=== PATIENT | female | born 1950 | race Caucasian/White ===

== ENCOUNTER 2024-03-31 08:43 | Inpatient (IN) ==
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
[~2024-03-31 08:43] MED LIST: DEXAMETHASONE SOD INJ 4 MG/ML VIAL ONE; LIDOCAINE 2% 2 ML VIAL/AMP(20MG/ML) INFIL ONE; MIDAZOLAM HCL 1 MG/ML 2ML VIAL ONE; ONDANSETRON INJ 2 MG/ML 2 ML VIAL ONE; PROPOFOL IV EMULSION 10 MG/ML 20 ML VIAL IV ONE; ROCURONIUM BROMIDE 10 MG/ML 5 ML VIAL IV ONE; SUGAMMADEX SODIUM 200 MG/2 ML VIAL IV ONE; fentaNYL citrate PF 100 MCG/2 ML VIAL ONE
[2024-03-31] MEDS: LR 15ML/HR IV SCH (09:20)
[2024-03-31] MEDS ORDERED: FLUMAZENIL 0.1 MG/1 ML 10 ML VIAL IV PRN (09:31)
[2024-03-31] MEDS ORDERED: ePHEDrine sulfate 50 MG/ML AMP IV PRN (09:31)
[2024-03-31] MEDS ORDERED: PROMETHAZINE HCL 6.25 MG in SODIUM CHLORIDE 0.9% 50 ML IV PRN (09:31)
[2024-03-31] MEDS ORDERED: NALOXONE HCL 0.4 MG/1 ML VIAL/CARP IV PRN (09:31)
[2024-03-31] MEDS ORDERED: fentaNYL citrate PF 100 MCG/2 ML VIAL IV PRN (09:31)
[2024-03-31] MEDS ORDERED: ONDANSETRON INJ 2 MG/ML 2 ML VIAL IV PRN (09:31)
[2024-03-31] MEDS ORDERED: LABETALOL HCL IV 5 MG/ML 20ML IV PRN (09:31)
[2024-03-31] MEDS ORDERED: ATROPINE SULFATE 0.1 MG/ML 10ML SYR IV PRN (09:31)
--- NOTE | 2024-03-31 10:13 | History & Physical Bridge Note ---
Date of Service March 31, 2024 History & Physical Bridge Note I have examined the patient, reviewed the History & Physical and in the interval since the performance of the History & Physical I have noted the following changes of clinical significance: no changes noted 73-year-old female coming to the hospital for pulmonary mass She is here for navigational robotic bronchoscopy with EBUS Risk and benefit of the procedure explained the patient in depth She understands and agrees to go to the procedure. PT/INR/PTT, platelets within normal limit Please note the above document was generated using voice recognition software. It may contain grammatical, syntax or spelling errors.Any formal questions or concerns about the content, text or information contained within the body of this dictation should be directly addressed to the provider for clarification.
[2024-03-31] MEDS ORDERED: ROCURONIUM BROMIDE 10 MG/ML 5 ML VIAL IV ONE (11:04)
[2024-03-31] MEDS ORDERED: ETOMIDATE 2 MG/ML 20 ML VIAL IV ONE (11:04)
[2024-03-31] MEDS ORDERED: ePHEDrine sulfate 50 MG/5 ML SYR ONE (11:08)
--- NOTE | 2024-03-31 12:24 | Procedure Note ---
Procedure Note: Bronchoscopy Procedure PREOPERATIVE DIAGNOSIS: Left lower lobe mass with mediastinal lymphadenopathy POSTOPERATIVE DIAGNOSIS: Left lower lobe mass with mediastinal lymphadenopathy PROCEDURE PERFORMED: Robotic navigational bronchoscopy with bronchoalveolar lavage, transbronchial biopsies and EBUS COMPLICATIONS: None. INDICATION: Rule out malignancy PROCEDURE: After obtaining an informed consent, the patient was brought to the Bronchoscopy Suite. The patient had appropriate oxygen, blood pressure, heart rate, and respiratory rate monitoring applied and monitored continuously throughout the procedure. Sedation and vitals were monitored by anesthesia, please refer to their notes Flexible bronchoscope was introduced through the ETT. The trachea appeared normal.The bronchoscope was then advanced through the kam, which was sharp. The scope was then advanced into the right main stem and each segment, subsegement in the right upper lobe short bifurcation, right middle lobe and right lower lobe were visualized. There was an amount of clear secretion which was suctioned out. There were no other findings including evidence of mass, anatomic distortions, or hemorrhage. The bronchoscope was subsequently withdrawn and advanced into the left mainstem. Again, each segment and subsegment was well visualized. No specific masses or other lesions were identified throughout the tracheobronchial tree on the left. There was minimal amount of clear secretion which was suctioned out Flexible bronchoscope was withdrawn and galaxy robotic bronchoscope was introduced. With the help of navigation system from the galaxy. The bronchoscope was brought to the proximity of the lung mass approximately 3.8 cm. Under the guidance of fluoroscopy multiple needle biopsies were taken. Suspicious on PRETTY This was followed by multiple transbronchial forceps biopsy also suspicious on PRETTY, Inclining towards mucinous adenocarcinoma Robotic bronchoscope was withdrawn and EBUS was introduced Station 7, station 10 L were visualized Station 7: 3 passes with multiple sweeps, adequate Station 10 L: 5 passes with multiple sweeps, suspicious EBUS was withdrawn and flexible bronchoscope was reintroduced The bronchoscope was then wedged in the left lower lobe and bronchoalveolar lavage samples were obtained. 120 ml of saline was instilled and a 5 ml of fluid was aspirated back.The bronchoscope was withdrawn and the area was suctioned clear. Minimal hemorrhage was identified and suctioned clear without difficulty. The bronchoscope was then withdrawn to the mainstem. The area was suctioned clear. The bronchoscope was then withdrawn. The patient tolerated the procedure well without evidence of desaturation or complications. Bronchoalveolar lavage samples were sent for cell count, Gram stain and bacterial culture, AFB culture and smear, fungal culture and smear and cytology. Transbronchial biopsies were sent for pathology. Recommendations: Follow-up micro, cytology and pathology Follow-up chest x-ray Please note the above document was generated using voice recognition software. It may contain grammatical, syntax or spelling errors.Any formal questions or concerns about the content, text or information contained within the body of this dictation should be directly addressed to the provider for clarification. [facility] [place]arges) Pulmonary/Thoracic Procedure 1: Pulmonary and Thoracic: 78333 Navigational Bronchoscopy Procedure 2: Pulmonary and Thoracic: 20441 Bronchoscopy w/ needle bx Procedure 3: Pulmonary and Thoracic: 66783 Bronchoscopy w/ transbronchial lung bx Procedure 4: Pulmonary and Thoracic: 78225 Bronchoscopy, w/EBUS 1 or 2 mediastinal Procedure 5: Pulmonary and Thoracic: 31889 Dx bronchoscopy/BAL
--- NOTE | 2024-03-31 12:40 | XRay Report ---
XR chest 1V portable CLINICAL HISTORY: Post Bronchoscopy TECHNIQUE: Single frontal radiograph of the chest was obtained. Comparison: Comparison is made to CT chest 03/04/2024 FINDINGS: No lines and tubes are seen. Calcified aortic knob is seen. Left retrocardiac density is again seen c ompatible with known mass. No evidence of pleural effusion or pneumothorax. IMPRESSION: Expected postbiopsy appearance without evidence of pneumothorax. ACT 112: Negative or not required by law. Electronically signed by: Mathieu Blakely M.D. 03/31/2024 12:38 PM
[2024-03-31 13:46] LABS: Lymphocyte Body Fluid Man 13 %; Neutrophil Body Fluid Man 59 %
[2024-03-31 13:47] LABS: Eosinophil Body Fluid Man 2 %; Fluid Mono/Macrophage 26 %
--- NOTE | 2024-03-31 14:24 | Anesthesiology Progress Note ---
Date of Service March 31, 2024 Anesthesia Post Procedure Vital Signs Vital Signs: Temp Pulse Pulse Resp BP Pulse Ox O2 Del Method 03/31/24 14:10 75 12 114/61 92 Room Air 03/31/24 14:00 72 12 99/52 L 94 Room Air 03/31/24 13:50 74 12 105/63 92 Room Air 03/31/24 13:40 69 16 108/48 L 91 Nasal Cannula 03/31/24 13:30 73 17 123/55 L 91 Nasal Cannula 03/31/24 13:20 69 13 121/50 L 92 Nasal Cannula 03/31/24 13:10 66 12 103/56 L 94 Nasal Cannula 03/31/24 13:00 66 21 128/51 L 93 Nasal Cannula 03/31/24 12:50 36.4 C L 71 17 129/56 L 92 Room Air 03/31/24 12:40 68 17 142/50 H 96 Oxymask 03/31/24 12:30 67 15 122/47 L 96 Oxymask 03/31/24 12:20 36.5 C 71 16 128/50 L 96 Oxymask 03/31/24 09:31 Room Air 03/31/24 09:16 36.7 C 67 20 157/60 H 97 Room Air O2 Flow Rate 03/31/24 14:10 03/31/24 14:00 03/31/24 13:50 03/31/24 13:40 1.5 03/31/24 13:30 1.5 03/31/24 13:20 2 03/31/24 13:10 2 03/31/24 13:00 2 03/31/24 12:50 03/31/24 12:40 2 03/31/24 12:30 4 03/31/24 12:20 6 03/31/24 09:31 03/31/24 09:16 Transfer of Care Handoff Completed per policy Notes Mental Status: alert / awake / arousable Patient Amnestic to Procedure: Yes Nausea / Vomiting: adequately controlled Pain: adequately controlled Airway Patency, RR, SpO2: stable & adequate BP & HR: stable & adequate Hydration State: stable & adequate Anesthetic Complications: no major complications apparent
--- NOTE | 2024-03-31 14:54 | XRay Report ---
XR chest 1V portable HISTORY: Status post bronchoscopy. Follow-up. COMPARISON: Chest 03/31/2024. Chest CT 03/04/2024. FINDINGS: For the small left pneumothorax with a maximal pleural gap of 1 cm. No significant mediasti nal shift. No pleural fusions. The cardiac silhouette remains top normal in size. There are calcifica tions within the aortic knob. Diffuse interstitial thickening and emphysema persists. Left retrocardi ac mass is better appreciated on the prior chest CT. IMPRESSION: 1. Small left pneumothorax. 2. The patient's known left retrocardiac mass is better appreciated on the prior chest CT. 3. Emphysema and chronic interstitial thickening persists. ACT 112: Negative or not required by law. Electronically signed by: Lauri Pina M.D. 03/31/2024 2:53 PM
--- NOTE | 2024-03-31 15:30 | Communication Note ---
Date of Service: March 31, 2024 Pulmonary addendum: Procedural chest x-ray did not show any signs of pneumothorax. In the PACU when I saw the patient, she complained of left-sided chest pain which was decreased in intensity compared to before Denied any shortness of breath. She was needing 2 L to maintain her oxygen saturation around 92-93%. Repeat chest x-ray was ordered which showed small left-sided pneumothorax. I will keep the patient on nonrebreather. Avoid positive pressure ventilation including flutter valve. Hold incentive spirometry for the time being. Observe the patient overnight, repeat chest x-ray around 5 PM. If the pneumothorax is getting worse then chest tube will be considered If it is stable then repeat a chest x-ray in the morning and if it is stable s table then discharge home Brief signout was given to Dr. Casarez and Dr Hanna Please note the above document was generated using voice recognition software. It may contain grammatical, syntax or spelling errors.Any formal questions or concerns about the content, text or information contained within the body of this dictation should be directly addressed to the provider for clarification. Coding Level of Care Code None
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
--- NOTE | 2024-03-31 16:16 | Anesthesiology Progress Note ---
Date of Service March 31, 2024 Anesthesia Post Procedure Vital Signs Vital Signs: Temp Pulse Pulse Resp BP Pulse Ox O2 Del Method 03/31/24 16:10 77 19 122/45 L 99 Non-rebreather 03/31/24 16:00 77 19 120/43 L 100 Non-rebreather 03/31/24 15:50 73 18 123/43 L 99 Non-rebreather 03/31/24 15:40 75 17 125/51 L 100 Non-rebreather 03/31/24 15:30 36.4 C L 72 18 105/43 L 100 Non-rebreather 03/31/24 15:20 72 16 105/61 100 Non-rebreather 03/31/24 15:10 76 18 127/61 99 Non-rebreather 03/31/24 15:00 77 16 118/48 L 99 Non-rebreather 03/31/24 14:50 73 18 112/50 L 99 Non-rebreather 03/31/24 14:40 79 15 113/45 L 99 Non-rebreather 03/31/24 14:30 36.5 C 79 18 97/56 L 92 Nasal Cannula 03/31/24 14:20 77 15 100/52 L 93 Nasal Cannula 03/31/24 14:10 75 12 114/61 92 Room Air 03/31/24 14:00 72 12 99/52 L 94 Room Air 03/31/24 13:50 74 12 105/63 92 Room Air 03/31/24 13:40 69 16 108/48 L 91 Nasal Cannula 03/31/24 13:30 73 17 123/55 L 91 Nasal Cannula 03/31/24 13:20 69 13 121/50 L 92 Nasal Cannula 03/31/24 13:10 66 12 103/56 L 94 Nasal Cannula 03/31/24 13:00 66 21 128/51 L 93 Nasal Cannula 03/31/24 12:50 36.4 C L 71 17 129/56 L 92 Room Air 03/31/24 12:40 68 17 142/50 H 96 Oxymask 03/31/24 12:30 67 15 122/47 L 96 Oxymask 03/31/24 12:20 36.5 C 71 16 128/50 L 96 Oxymask 03/31/24 09:31 Room Air 03/31/24 09:16 36.7 C 67 20 157/60 H 97 Room Air O2 Flow Rate 03/31/24 16:10 15 03/31/24 16:00 15 03/31/24 15:50 15 03/31/24 15:40 15 03/31/24 15:30 15 03/31/24 15:20 15 03/31/24 15:10 15 03/31/24 15:00 15 03/31/24 14:50 15 03/31/24 14:40 15 03/31/24 14:30 2 03/31/24 14:20 2 03/31/24 14:10 03/31/24 14:00 03/31/24 13:50 03/31/24 13:40 1.5 03/31/24 13:30 1.5 03/31/24 13:20 2 03/31/24 13:10 2 03/31/24 13:00 2 03/31/24 12:50 03/31/24 12:40 2 03/31/24 12:30 4 03/31/24 12:20 6 03/31/24 09:31 03/31/24 09:16 Pain Intensity Left Lateral Chest: Pain Intensity: 1 Transfer of Care Handoff Completed per policy Notes Mental Status: alert / awake / arousable Patient Amnestic to Procedure: Yes Nausea / Vomiting: adequately controlled Pain: adequately controlled Airway Patency, RR, SpO2: see Notes below (Patient w/ small left pneumothorax;Pt stable;will be under care of Dr Hoffmann,graduate research assistant) BP & HR: stable & adequate Hydration State: stable & adequate Anesthetic Complications: no major complications apparent
--- NOTE | 2024-03-31 17:29 | XRay Report ---
XR chest 1V portable CLINICAL HISTORY: Follow-up pneumothorax. COMPARISON STUDY: Chest radiograph March 31, 2024 at 2:28 PM. FINDINGS: Moderate-sized left pneumothorax has increased in size since chest radiograph performed ear lier today. Left lower lobe airspace opacity obscures the known left lower lobe mass. There is no rig ht pneumothorax. There is evidence for pulmonary edema. IMPRESSION: Increase in size of a moderate left pneumothorax. ACT 112: Negative or not required by law. Electronically signed by: Walker Francis M.D. 03/31/2024 5:28 PM
[2024-03-31] MEDS: MoRPHine SULFATE 4 MG/ML 1 ML CARP\\VIAL IV PRN (18:50)
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
[2024-03-31] MEDS: LIDOCAINE 1% LOCAL 20 ML VIAL ONE (19:20)
[2024-03-31] MEDS: MoRPHine SULFATE 4 MG/ML 1 ML CARP\\VIAL ONE (19:23)
[2024-03-31] MEDS ORDERED: MoRPHine SULFATE 2 MG/ML CARP IV PRN ×2 (19:23→19:57)
[2024-03-31] MEDS ORDERED: ACETAMINOPHEN 1,000 MG/100 ML VIAL IV PRN (19:23)
--- NOTE | 2024-03-31 19:24 | Procedure Note ---
Procedure Note Date of Service March 31, 2024 Note Procedure: Left sided chest tube insertion Label Designer: Dr. Katerina Hoffmann Indication: Worsening pneumothorax Consent: Signed by patient and verified with timeout prior to procedure Anesthesia: 1% lidocaine without epinephrine local Procedure: Consent was verified and timeout performed. Appropriate imaging studies were reviewed prior to the procedure. Patient was placed in a seated position. Appropriate site above the diaphragm on the left midaxillary line fourth intercostal space for chest tube insertion was selected. The skin was prepped and draped in normal sterile fashion. Lidocaine was used for local analgesia. Approximately 1 cm incision was made with the help of scalpel. With the help of curved mosquito forceps, blunt dissection was made till the rib was felt. Just above the rib blunt dissection was performed with gush of air. A small skin carlos was made with the scalpel and the catheter over the needle apparatus was advanced over the rib into the pleural space. 16 Tamazight chest tube was inserted without any resistance. 3-0 suture was placed at the tube site. No air leak appreciated after that. Chest x-ray to follow The patient tolerated the procedure without obvious complication Complications: None Blood loss: Less than 2 cc. Coding CPT Codes Pulmonary/Thoracic - Pulmonary and Thoracic: 37951 Tube thoracostomy ([id number]) Pulmonary/Thoracic - Pulmonary and Thoracic: 57519 US, Chest, real time with imaging documentation ([id number]) [facility] [place] Procedure Codes (Charges) Pulmonary/Thoracic Procedure 1: Pulmonary and Thoracic: 54548 Tube thoracostomy Procedure 2: Pulmonary and Thoracic: 67399 US, Chest, real time with imaging documentation
[2024-03-31] MEDS ORDERED: POLYETHYLENE (MIRALAX) 17 GM PACK PO PRN (19:57)
[2024-03-31] MEDS ORDERED: oxyCODONE HCL IR 5 MG TAB (IMMEDIATE RELEASE) PO PRN (19:57)
[2024-03-31] MEDS ORDERED: ALUMINUM/MAGNESIUM SUSP 30 ML UDC PO PRN (19:57)
[2024-03-31] MEDS: ACETAMINOPHEN 325 MG TAB PO PRN (21:46)
[2024-03-31] MEDS: SACCHAROMYCES BOULARDII 250 MG CAP PO SCH (21:47)
[2024-04-01] MEDS: MoRPHine SULFATE 4 MG/ML 1 ML CARP\\VIAL IV PRN (03:43)
[2024-04-01] MEDS: LEVOTHYROXINE SODIUM 50 MCG TABLET PO SCH (05:55)
[2024-04-01] MEDS: METOPROLOL SUCC 50MG EXT REL TAB PO SCH (08:05)
[2024-04-01] MEDS: UMECLIDINIUM BROMIDE 62.5MCG/BLISTER 7 PUFFS/INHALER INH SCH (08:07)
--- NOTE | 2024-04-01 08:12 | XRay Report ---
XR chest 1V portable HISTORY: s/p chest tube placement COMPARISON: Chest 03/31/2024. FINDINGS: Interval placement left-sided chest tube which terminates within the medial aspect of the l eft hemithorax. A small left pneumothorax has decreased in size. The right lung is clear. Scoliosis a gain noted. The cardiac silhouette is borderline enlarged. Left basilar densities persist. Left hilar enlargement again noted. The left retrocardiac mass is better appreciated on a prior chest CT. IMPRESSION: Interval placement left-sided chest tube with decrease in size in the small left pneumothorax. ACT 112: Negative or not required by law. Electronically signed by: Lauri Pina M.D. 04/01/2024 8:11 AM
--- NOTE | 2024-04-01 08:26 | XRay Report ---
XR chest 1V portable HISTORY: Shortness of breath. COMPARISON: Chest 03/31/2024. FINDINGS: Left-sided chest tube remains unchanged in position. A tiny left apical pneumothorax has im proved. Left retrocardiac mass is again noted. Bibasilar linear densities favor subsegmental atelecta sis. The heart is stable in size. IMPRESSION: Decrease in size in the tiny left apical pneumothorax. Left-sided chest tube is unchanged in position . ACT 112: Negative or not required by law. Electronically signed by: Lauri Pina M.D. 04/01/2024 8:24 AM
--- NOTE | 2024-04-01 10:06 | Pulmonology Progress Note ---
Date of Service April 01, 2024 Assessment & Plan (1) Postprocedural pneumothorax: Plan: No pneumothorax seen today on chest x-ray. Patient placed to waterseal and if no airleak in 1 hour, will clamp the chest tube and repeat chest x-ray. Possible removal of chest tube today and discharge home if all goes well. Follow up cyto and path by primary metal bumper. Care coordinated with bedside nursing. Admission and Anticipated Discharge Date Admission Date: March 31, 2024 Subjective Patient seen and examined. Complaining of some soreness around her left ribs. Chest x-ray reviewed today with resolution of pneumothorax. Patient placed on waterseal with no significant air leak noted. Communicated with nursing. Review of Systems Review of Systems: All systems reviewed & are unremarkable except as noted in HPI & below Physical Exam Physical Exam: Constitutional: Patient appears to be of their stated age. Patient is in no apparent distress. Patient is well-developed. Eyes: Pupils are equal round and reactive to light. Conjunctivae are normal. Anicteric sclera. Ears nose, mouth and throat: Mallampati class 2. Normal posterior oropharynx. Uvula is midline. Neck: Trachea is midline. Visual inspection is normal. Respiratory: Diminished lung sounds at left lung base. No wheezes. Cardiovascular: Regular rate and rhythm. No murmurs. No edema. Gastrointestinal: Normal bowel sounds, soft, nontender and nondistended. No hepatosplenomegaly noted. Musculoskeletal: No cyanosis. Patient is able to move all extremities. Strength is 5 out of 5 in the upper and lower extremities. Skin: No rashes, warm dry and intact. Neurologic: No obvious focal neurological deficits seen. Psychiatric: Alert and oriented x3 with a euthymic affect. Results & Data Results & Data Vital Signs (Past 12 Hours) Vital Signs Temp Pulse Resp BP Pulse Ox O2 Del Method O2 Flow Rate 04/01/24 08:00 Nasal Cannula 3 04/01/24 07:53 36.7 C 79 18 112/65 95 Nasal Cannula 3 04/01/24 01:35 36.5 C 79 20 152/77 H 94 Nasal Cannula 3.0 03/31/24 22:25 36.5 C 79 18 99/58 L 95 Nasal Cannula 3.0 PG Care Time/CCT Total # of Minutes Spent Total Time Spent with Patient: Total time spent is greater than 50% in coordination of care (as documented) at patient's floor/unit and/or counseling patient: Coding Level of Care Code 80575 SUB INP/OBS CARE 35MIN Diagnoses Postprocedural pneumothorax J95.811
--- NOTE | 2024-04-01 12:01 | Communication Note ---
Date of Service: April 01, 2024 Chest tube clamped at 11:55 AM. Nursing informed. Will monitor symptoms closely and repeat chest x-ray shortly.
[2024-04-01] MEDS: ONDANSETRON INJ 2 MG/ML 2 ML VIAL IV PRN (14:09)
--- NOTE | 2024-04-01 15:20 | Hospitalist Progress Note ---
Date of Service April 01, 2024 Assessment & Plan (1) Postprocedural pneumothorax: Plan: 73 y/o woman with left lower lung mass admitted with postprocedural PTX following bronchoscopy with EBUS and transbronchial biopsy Initially small, treated with supplemental oxygen. Repeat CXR evening of 03/31 showed enlarging pneumothorax so chest tube was placed by Dr. Hoffmann -CXR AM 04/01 with only tiny L apical pneumothorax - personally reviewed film -pulmonary consulting - Dr. Velasco changed tube to water seal this am, then clamped midday. Tolerating so far, await repeat CXR (2) Mucinous adenocarcinoma of lung: Plan: Left lower lung mass, underwent bronchoscopy with EBUS and transbronchial biopsy 03/[address] Hoffmann, prelim pathology mucinous adenocarcinoma -CT chest/abdomen/pelvis 03/04 (see above) -MRI brain done 03/01 for hearing loss evaluation negative for intracranial pathology -await final pathology - oncology referral as outpatient -discussed with Preethi and her 04/01 (3) COPD with emphysema: Plan: Not in exacerbation PFTs 03/31 reviewed - moderate obstructive disease, no BD response, mildly decreased DLCO -continue tiotropium daily (4) PAD (peripheral artery disease): Plan: PRIYA 80-99% stenosis - asymptomatic. interventions on hold while lung mass being evaluated. Also L subclavian stenosis at risk for steal. Seen by Dr. Gibson 03/13 -resume ASA once PTX resolved -continue statin (5) Coronary artery disease: Plan: Hx LAD stent - 10 years ago -resume ASA once PTX resolved -continue statin Plan esophageal phase dysphagia/odynophagia recently - possibly related to lung mass. GI evaluation with esophagram and/or EGD would be appropriate Other chronic medical problems: HTN - cont metoprolol hypothyroidism - cont levothyroxine vaping nicotine dependence - nicotine gum PRN odynophagia DVT ppx - SCDs, start chemoppx if not discharging by tonight Admission and Anticipated Discharge Date Admission Date: March 31, 2024 Subjective doing ok. not short of breath. some expected pain at left chest chest tube site and with breathing Physical Exam Physical Exam: PHYSICAL EXAMINATION Last 24h vital signs reviewed, see documentation in flowsheet General: comfortable appearing, no distress, sitting on bed HEENT: Normocephalic, atraumatic, pupils round and equal, sclerae anicteric, no conjunctival injection, moist mucus membranes Lungs: Normal respiratory effort. Clear to auscultation bilaterally. No RRW. chest tube left lateral chest Heart: Regular rate and rhythm, no murmurs. No JVD Abdomen: Soft, nontender, nondistended. Bowel sounds present. Extremities: Warm, dry, well-perfused. No extremity edema. Neuro: Alert and oriented x 4, face symmetric, moves 4 extremities well Psych: Normal affect and behavior Results & Data Results & Data Vital Signs (Past 12 Hours) Vital Signs Temp Pulse Pulse Pulse Resp BP Pulse Ox 04/01/24 10:50 36.8 C 69 20 115/65 95 04/01/24 08:00 67 04/01/24 08:00 04/01/24 07:53 36.7 C 79 18 112/65 95 O2 Del Method O2 Flow Rate 04/01/24 10:50 Nasal Cannula 3 04/01/24 08:00 04/01/24 08:00 Nasal Cannula 3 04/01/24 07:53 Nasal Cannula 3 Diagnostic Findings Chest X-Ray 03/31/24 17:00 XR chest 1V portable CLINICAL HISTORY: Follow-up pneumothorax. COMPARISON STUDY: Chest radiograph March 31, 2024 at 2:28 PM. FINDINGS: Moderate-sized left pneumothorax has increased in size since chest radiograph performed earlier today. Left lower lobe airspace opacity obscures the known left lower lobe mass. There is no right pneumothorax. There is evidence for pulmonary edema. IMPRESSION: Increase in size of a moderate left pneumothorax. ACT 112: Negative or not required by law. Electronically signed by: Walker Francis M.D. 03/31/2024 5:28 PM Chest X-Ray 03/31/24 19:02 XR chest 1V portable HISTORY: s/p chest tube placement COMPARISON: Chest 03/31/2024. FINDINGS: Interval placement left-sided chest tube which terminates within the medial aspect of the left hemithorax. A small left pneumothorax has decreased in size. The right lung is clear. Scoliosis again noted. The cardiac silhouette is borderline enlarged. Left basilar densities persist. Left hilar enlargement again noted. The left retrocardiac mass is better appreciated on a prior chest CT. IMPRESSION: Interval placement left-sided chest tube with decrease in size in the small left pneumothorax. ACT 112: Negative or not required by law. Electronically signed by: Lauri Pina M.D. 04/01/2024 8:11 AM Chest X-Ray 04/01/24 07:00 XR chest 1V portable HISTORY: Shortness of breath. COMPARISON: Chest 03/31/2024. FINDINGS: Left-sided chest tube remains unchanged in position. A tiny left apical pneumothorax has improved. Left retrocardiac mass is again noted. Bibasilar linear densities favor subsegmental atelectasis. The heart is stable in size. IMPRESSION: Decrease in size in the tiny left apical pneumothorax. Left-sided chest tube is unchanged in position. ACT 112: Negative or not required by law. Electronically signed by: Lauri Pina M.D. 04/01/2024 8:24 AM PG Care Time/CCT Total # of Minutes Spent Total Time Spent with Patient: Total time spent is greater than 50% in coordination of care (as documented) at patient's floor/unit and/or counseling patient: Coding Level of Care Code 79328 SUB INP/OBS CARE 2/35MIN Diagnoses Postprocedural pneumothorax J95.811 Mucinous adenocarcinoma of lung C34.90 COPD with emphysema J43.9 PAD (peripheral artery disease) I73.9 Coronary artery disease I25.10
--- NOTE | 2024-04-01 15:47 | Procedure Note ---
Procedure Note Date of Service April 01, 2024 Note Patient evaluated for chest tube removal. No significant pneumothorax seen after clamping of the chest tube. Verbal consent was obtained from the patient to remove chest tube and place 2 interrupted 2-0 silk sutures to close the incision wound. Timeout performed prior to the procedure. I removed the bandages over the chest tube site. Sutures were removed. Chest tube was removed upon exhalation. Chest tube was found to be fully intact. I then cleaned the site with chlorhexidine and placed 2 interrupted 2-0 silk sutures. I put a Vaseline dressing over the site and then and OptiForm adhesive dressing over the site. Patient tolerated the procedure well. She will need to be evaluated for home oxygen prior to dismissal from the hospital. Otherwise, she can be discharged from the hospital from a pulmonary perspective and follow-up with Dr. Hoffmann in the clinic. Sutures will need to be removed later next week in the pulmonary clinic. Patient instructed to keep the area clean and dry for the next 2 to 3 days. Coding CPT Codes Pulmonary/Thoracic - Pulmonary and Thoracic: 00296 Remove lung catheter ([id number]) Skin and Soft Tissue - Skin and Soft Tissue: 75225 Repair of wound or lesion ([id number]) [facility] [place] (Charges) Pulmonary/Thoracic Procedure 1: Pulmonary and Thoracic: 66759 Remove lung catheter Skin and Soft Tissue Skin and Soft Tissue: 99515 Repair of wound or lesion
--- NOTE | 2024-04-01 15:56 | XRay Report ---
XR chest 1V portable HISTORY: s/p chest tube clamping COMPARISON: Chest 04/01/2024. FINDINGS: Left-sided chest tube is unchanged in position. A tiny left pneumothorax persists with a ma ximal pleural gap of 3 mm. Left retrocardiac mass and left basilar densities are again noted. The rig ht lung is clear. IMPRESSION: No change in the tiny left apical pneumothorax. Left-sided chest tube is unchanged in position. ACT 112: Negative or not required by law. Electronically signed by: Lauri Pina M.D. 04/01/2024 3:55 PM
--- NOTE | 2024-04-02 07:34 | Pulmonology Progress Note ---
Date of Service April 02, 2024 Assessment & Plan (1) Postprocedural pneumothorax: (2) COPD with emphysema: (3) Ex-smoker: (4) Acute respiratory failure with hypoxia: (5) Pulmonary mass: Plan --Left-sided pneumothorax Postprocedural Chest tube removed 04/01/2024 -- Left lower lobe mass 7 cm x 6.3 cm mass MRI of the brain was negative for metastasis. S/p navigational bronchoscopy 03/31/2024, preliminary diagnosis of mucinous adenocarcinoma Follow-up final pathology and cytology -- COPD with emphysema Gold A Start the patient on Spiriva to be used on a daily basis Full PFT prior to next visit Spirometry 03/08/2024 personally reviewed: Moderate obstructive lung dysfunction FVC 2.12 L 71%, FEV1 1.27 L 56%, FEV1/FVC 60% -- Ex-smoker > 70-lovm-mpwr smoking history, quit in 2012 Encouraged to continue abstinence from smoking -- Vaping nicotine 3 mg on a daily basis Plan: Chest x-ray from today does not show any clear signs of pneumothorax Avoid any strenuous activity for 2 weeks. Will follow-up with me in the office coming Wednesday for removal of sutures S/p navigational bronchoscopy 03/31/2024, preliminary diagnosis of mucinous adenocarcinoma Follow-up final pathology and cytology Please note the above document was generated using voice recognition software. It may contain grammatical, syntax or spelling errors.Any formal questions or concerns about the content, text or information contained within the body of this dictation should be directly addressed to the provider for clarification. Admission and Anticipated Discharge Date Admission Date: March 31, 2024 Subjective Patient seen and examined at bedside. No acute distress, notable since over night Patient's was in the room at the time of examination Denied any chest pain, no shortness of breath Mild soreness at the site where she had the chest tube Was saturating 94-95% on 2 L nasal cannula at rest Fair appetite Review of Systems Review of Systems: All systems reviewed & are unremarkable except as noted in Subjective Physical Exam Physical Exam: Constitutional: No acute distress HEENT: EOMI, PERRLA Respiratory system: Decreased air entry bilaterally more decreased on the left,, no wheeze, no rhonchi, mild crackles bilateral lower lobes CVS: S1-S2 positive, no murmurs or gallops Abdomen: Soft, nontender, nondistended, positive bowel sounds x4 Extremities: +2 pulses bilaterally radialis/ dorsalis pedis, no cyanosis, no edema Neuro: Awake alert oriented x3 Psych: Normal mood and affect G/U: No Kohli Skin: no rashes, warm and dry Lymphatic: no cervical or axillary lymphadenopathy Results & Data Results & Data Vital Signs (Past 12 Hours) Vital Signs Temp Pulse Pulse Resp BP Pulse Ox O2 Del Method 04/02/24 02:57 36.6 C 80 21 105/50 L 90 Nasal Cannula 04/02/24 00:00 70 04/01/24 23:13 36.6 C 78 19 106/55 L 90 Nasal Cannula 04/01/24 20:00 Nasal Cannula 04/01/24 19:47 36.4 C L 76 19 95/56 L 97 Nasal Cannula O2 Flow Rate 04/02/24 02:57 2 04/02/24 00:00 04/01/24 23:13 2 04/01/24 20:00 2 04/01/24 19:47 PG Care Time/CCT Total # of Minutes Spent Total Time Spent with Patient: Total time spent is greater than 50% in coordination of care (as documented) at patient's floor/unit and/or counseling patient: Coding Level of Care Code 51396 SUB INP/OBS CARE 235MIN Diagnoses Postprocedural pneumothorax J95.811 COPD with emphysema J43.9 Ex-smoker Z87.891 Acute respiratory failure with hypoxia J96.01 Pulmonary mass R91.8
--- NOTE | 2024-04-02 09:16 | XRay Report ---
XR chest 1V portable CLINICAL HISTORY: follow up pneumothorax TECHNIQUE: Single frontal radiograph of the chest was obtained. Comparison: Comparison is made to chest radiograph 04/01/2024 FINDINGS: No lines and tubes are seen. The cardiomediastinal silhouette is normal. The lungs are clear. Previou sly noted pneumothorax is not evident on today's exam. IMPRESSION: Interval resolution of previously noted trace left pneumothorax. ACT 112: Negative or not required by law. Electronically signed by: Mathieu Blakely M.D. 04/02/2024 9:14 AM
--- NOTE | 2024-04-02 17:34 | Discharge Summary ---
Date of Service April 02, 2024 Admission HPI Per Admitting Provider 73 y/o woman with left lower lobe lung mass who underwent bronchoscopy today with EBUS and transbronchial biopsy. Preliminary pathology mucinous adenocarcinoma. Following the procedure first CXR without evidence of pneu mothorax. Later in PACU she developed some left sided chest pain. Repeat CXR with small left pneumothorax. Admitted for treatment and monitoring of small postprocedural PTX. Seen in PACU. Currently feeling well. Left sided chest pain present but has improved, now mild. Did not recieve any medications for pain control. No shortness of breath. No nausea. No abdominal pain or dysuria. Has had occasional left sided chest pains. Recently has had feeling of food being stuck in lower throat/esophagus. Had EGD but years ago with polyps. Principal Diagnosis postprocedural pneumothorax on left NSCLC left chest mass - prelim path mucinous adenocarcinoma Discharge Exam PHYSICAL EXAMINATION Last 24h vital signs reviewed, see documentation in flowsheet General: comfortable appearing, no distress, sitting on bed HEENT: Normocephalic, atraumatic, pupils round and equal, sclerae anicteric, no conjunctival injection, moist mucus membranes Lungs: Normal respiratory effort. Clear to auscultation bilaterally. No RRW. chest tube was removed yesterday Heart: Regular rate and rhythm, no murmurs. No JVD Abdomen: Soft, nontender, nondistended. Bowel sounds present. Extremities: Warm, dry, well-perfused. No extremity edema. Neuro: Alert and oriented x 4, face symmetric, moves 4 extremities well Psych: Normal affect and behavior Discharge Data Allergies Allergy/AdvReac Type Severity Reaction Status Date / Time No Known Allergies Allergy Verified 03/31/24 09:22 Consultations 03/31/24 15:25 Consult Pulmonology Routine Procedures Performed Operation Date: 03/31/24 10:20 Actual Procedures p Robotic Assisted Navigational Bronchoscopy, Transbronchial needle aspiration, transbronchial biopsy with fluoroscopy(Not Applicable) - [facility]ater[facility] Hoffmann [facility], [facility] s Endobronchial Ultrasound, endobronchial brushings, Broncheal Aveolar Lavage(Not Applicable) - Kater[facility] MD, [facility] Ordered Studies 03/31/24 10:20 FL bronchoscopy Routine 03/31/24 17:24 US point of care ultrasound Urgent Chest X-Ray 04/02/24 07:58 XR chest 1V portable CLINICAL HISTORY: follow up pneumothorax TECHNIQUE: Single frontal radiograph of the chest was obtained. Comparison: Comparison is made to chest radiograph 04/01/2024 FINDINGS: No lines and tubes are seen. The cardiomediastinal silhouette is normal. The lungs are clear. Previously noted pneumothorax is not evident on today's exam. IMPRESSION: Interval resolution of previously noted trace left pneumothorax. ACT 112: Negative or not required by law. Electronically signed by: Mathieu Blakely M.D. 04/02/2024 9:14 AM Hospital Course (1) Postprocedural pneumothorax: 73 y/o woman with left lower lung mass admitted with postprocedural PTX following bronchoscopy with EBUS and transbronchial biopsy Initially small, treated with supplemental oxygen. Repeat CXR evening of 03/31 showed enlarging pneumothorax so chest tube was placed by Dr. Hoffmann -chest tube removed 04/01 -I personally reviewed CXR film from AM 04/02 - pneumothorax resolved -has follow up with Dr. Hoffmann wednesday in office for suture removal -lifting/activity precautions discussed Remained mildly hypoxic, requiring 2L per nasal cannula at rest and with ambulation, home O2 arranged (2) Mucinous adenocarcinoma of lung: Left lower lung mass, underwent bronchoscopy with EBUS and transbronchial biopsy 03/[address] 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 interventions on hold while lung mass being evaluated. Also L subclavian stenosis at risk for steal. Seen by Dr. Gibson 03/13 -resume ASA once PTX resolved -continue statin (5) Coronary artery disease: Hx LAD stent - 10 years ago -resume ASA once PTX resolved -continue statin Plan esophageal phase dysphagia/odynophagia recently - possibly related to lung mass. consider GI evaluation with esophagram and/or EGD Other chronic medical problems: HTN - cont metoprolol hypothyroidism - cont levothyroxine vaping nicotine dependence - nicotine gum PRN Total Time Total Time Spent Total Time Spent (In Minutes): <30 minutes Discharge Plan Discharge Items Patient Disposition: Home - Self-Care Reason For Visit: PNEUMOTHORAX Discharge Diagnosis: Postprocedural pneumothorax Activity: Per Instructions section Lifting: No more than 10 pounds Non-emergency contact: Primary Care Provider and [employer] Call non-emergency contact if: you have any medication questions and your symptoms worsen Follow-up/Referrals: Clinton Anand DO [Primary Care Provider] - 04/12/24 11:00 am (Hospital follow up scheduled with Andrés Orosco on April 12 at 11:00) Katerina Hoffmann MD, FCCP [Physician] - Diet: Regular Addtl Attending Provider Instructions: You were treated for pneumothorax (partially collapsed lung) that resulted from your biopsy This required treatment with chest tube Keep the incision site clean and dry. Showering is ok and pat dry. Avoid baths and swimming until incision completely heals. Avoid lifting over 10 pounds or strenuous exertion until your doctor says it is ok - typically 2-4 weeks If you develop new chest pain or shortness of breath, seek immediate medical attention since pneumothorax can recur Once the pathology from your biopsy is resulted, Dr. Hoffmann will refer you to a cancer specialist for further testing and to make a treatment plan Pending Studies at Discharge: Yes Studies:: pathology results from lung biopsy Stand-Alone Forms: My [facility], Smoking Cessation Medications and DC Order Prescriptions: Continued fenofibrate nanocrystallized 145 mg tablet See Rx Instructions .ROUTE .COMPLEX Qty: 30 11RF Dose Instruction: Take 1 tablet by mouth once daily Rx Instructions: Take 1 tablet by mouth once daily levothyroxine 50 mcg tablet 50 mcg PO QAM Qty: 90 1RF Calcium 600 + D(3) 600 mg-5 mcg (200 unit) capsule 1 cap PO BID multivitamin [Multiple Vitamins] Tablet 1 tab PO DAILY cholecalciferol (vitamin D3) 25 mcg (1,000 unit) capsule 25 mcg PO DAILY Spiriva Respimat 2.5 mcg/actuation mist 2 puff inhalation DAILY Qty: 4 2RF metoprolol succinate 50 mg tablet extended release 24 hr 50 mg PO QAM acetaminophen [Tylenol] 325 mg Tablet 325 mg PO QID PRN (Reason: Pain) aspirin 81 mg Capsule 81 mg PO QAM Saccharomyces boulardii [Florastor] 250 mg capsule 250 mg PO BID Qty: 20 0RF Rx Instructions: swallow whole rosuvastatin 20 mg tablet 20 mg PO [id number] Discharge Orders: Discharge Order (Routine); Ordered 04/02/24 Ordered By: Karen Hanna Admission Data Admit Date/Time: 03/31/24 15:12 Attending Provider: Karen Hanna Admit Provider: Katerina Hoffmann Primary Care Provider: Clinton Anand Other Providers: Montez Velasco Other Interventions: Discharge Summary Assessment (RN) Last Done: 04/02/24 11:56 Coding Level of Care Code 97364 IN/OBS DISCH 30 MIN/LESS Diagnoses Postprocedural pneumothorax J95.811 Mucinous adenocarcinoma of lung C34.90 COPD with emphysema J43.9 PAD (peripheral artery disease) I73.9 Coronary artery disease I25.10
== END 2024-04-02 12:37 | disposition home or self-care (01) | DRG 166 ==
LOC: ASU 08:43 → SUATTDRO 15:12 → PACUINP 15:12 → 2S 19:57

== ENCOUNTER 2024-12-22 19:49 | Inpatient (IN) ==
--- NOTE | 2024-12-22 20:07 | Emergency Department Note ---
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 By: EML Discontinued Medications Albuterol (Albut/Ipratrop 3mg/0.5mg Neb 3 Ml Vial) 12 ml NEB ONE ONE; Protocol Stop: 12/22/24 19:56 Last Admin: 12/22/24 20:43 Dose: 12 ml Documented By: COURTNEY Sodium Chloride (Nss) 1,000 mls @ 999 mls/hr IV .Q1H1M ONE Stop: 12/22/24 21:00 Last Infusion: 12/22/24 21:12 Dose: Infused Documented By: Admin: 12/22/24 20:11 Dose: 999 mls/hr Documented By: COURTNEY Piperacillin Sod/Tazobactam Sod (Zosyn) 4.5 gm in 100 mls @ 200 mls/hr IV NOW ONE; Protocol Stop: 12/22/24 20:38 Last Infusion: 12/22/24 21:42 Dose: Infused Documented By: Admin: 12/22/24 21:12 Dose: 200 mls/hr Documented By: COURTNEY Acetaminophen (Ofirmev) 1,000 mg in 100 mls @ 400 mls/hr IV NOW STA Stop: 12/22/24 20:36 Last Infusion: 12/22/24 20:43 Dose: Infused Documented By: Admin: 12/22/24 20:28 Dose: 400 mls/hr Documented By: COURTNEY Sodium Chloride (Nss) 500 mls @ 999 mls/hr IV .Q31M ONE Stop: 12/22/24 21:07 Last Infusion: 12/22/24 21:10 Dose: Infused Documented By: Admin: 12/22/24 20:39 Dose: 999 mls/hr Documented By: COURTNEY Sodium Chloride (Nss) 500 mls @ 999 mls/hr IV .Q31M ONE Stop: 12/22/24 21:34 Last Infusion: 12/22/24 21:40 Dose: Infused Documented By: Admin: 12/22/24 21:09 Dose: 999 mls/hr Documented By: COURTNEY Methylprednisolone (Methylprednisolone 125 Mg/2 Ml Vial) 125 mg IV NOW STA Stop: 12/22/24 19:56 Last Admin: 12/22/24 20:14 Dose: 125 mg Documented By: COURTNEY Norepinephrine Bitartrate (Norepinephrine/D5w 4 Mg/250 Ml) Confirm Administered Dose 4 mg IV .STK-MED ONE Stop: 12/22/24 21:20 Last Admin: 12/22/24 21:20 Dose: Not Given Documented By: COURTNEY Imaging Data Attestation: I personally reviewed and interpreted this imaging study as follows: My Impression: 1 view chest x-ray was obtained in the emergency department. My interpretation is no definite free air, bilateral lower infiltrates were noted with pleural effusions. Final report below. Radiologist's Impression: Chest X-Ray 12/22/24 19:55 Exam(s): XR CXR 1 VIEW EXAM: XR Chest, 1 View CLINICAL HISTORY: Sepsis. TECHNIQUE: Frontal view of the chest. COMPARISON: Portable chest single view December 21, 2024 FINDINGS: Lungs: Similar to slightly increased subsegmental opacities at the right lung base with similar opacification of the left lower lung zone. The pulmonary suture appears minimally improved from the previous examination. Pleural space: A left pleural effusion is noted. No pneumothorax. Heart: The cardiac silhouette is partially obscured but thought to be stable. Mediastinum: The mediastinal contours are stable. The trachea is midline. Bones/joints: Unremarkable. No acute fracture. IMPRESSION: 1. Similar to slightly increased subsegmental opacities at the right lung base with similar opacification of the left lower lung zone. The left pleural effusion is stable in appearance. 2. The pulmonary suture appears minimally improved from the previous examination. Electronically signed by: Gagan Eugene MD 12/22/24 20:49 PM Discharge Plan Visit Data Chief Complaint: Shortness of Breath/Dyspnea Stated Complaint: SOB, Weakness ED Provider: Ken Buck Discharge Problem: Respiratory failure, Hypoxia, Pneumonia, Acute non-ST elevation myocardial infarction (NSTEMI), Pleural effusion, Influenza A Patient Disposition: Being Evaluated by Hospitalist Forms Stand Alone Forms: [facility] Prescriptions Prescriptions: No Action docusate sodium [Colace] 100 mg capsule 100 mg PO QAM levothyroxine 50 mcg tablet 50 mcg PO QAM Qty: 90 1RF metoprolol succinate 50 mg tablet extended release 24 hr 50 mg PO QAM Qty: 90 3RF metformin 500 mg tablet 500 mg PO BID Qty: 180 1RF Rx Instructions: Take 1 PO daily x 7 days, then twice daily thereafter Calcium 600 + D(3) 600 mg-5 mcg (200 unit) capsule 1 cap PO BID multivitamin [Multiple Vitamins] Tablet 1 tab PO QAM cholecalciferol (vitamin D3) 25 mcg (1,000 unit) capsule 25 mcg PO HS oxycodone-acetaminophen [Percocet] 5-325 mg tablet 1 tab PO Q6H PRN (Reason: cancer breakthru pain) 30 Days Qty: 60 0RF acetaminophen [Tylenol] 325 mg Tablet 325 mg PO QID PRN (Reason: Pain) aspirin 81 mg Capsule 81 mg PO QAM clopidogrel 75 mg Tablet 75 mg PO HS pantoprazole 40 mg tablet,delayed release (DR/EC) 40 mg PO QAM lidocaine 5 % adhesive patch,medicated 1 patch topical DAILY PRN (Reason: cancer related pain) Rx Instructions: leave on most painful area for up to 12 hrs ezetimibe 10 mg tablet 10 mg PO QAM rosuvastatin 40 mg tablet 40 mg PO HS Incruse Ellipta 62.5 mcg/actuation blister with device 1 inh inhalation QAM Saccharomyces boulardii [Florastor] 250 mg capsule 250 mg PO BID Qty: 20 0RF Rx Instructions: swallow whole fenofibrate nanocrystallized 145 mg tablet 145 mg PO QPM Rx Instructions: Take 1 tablet by mouth once daily prochlorperazine maleate 10 mg tablet 10 mg PO Q6H PRN (Reason: Nausea And Vomiting) olanzapine 2.5 mg tablet 2.5 mg PO HS Rx Instructions: take for 4 days starting day 1 of chemo for nausea dexamethasone 4 mg tablet 4 mg PO .SEEATTACHED Rx Instructions: TAKE 4 MG BY MOUTH TWICE DAILY STARTING THE DAY BEFORE TREATMENT, DAY OF TREATMENT AND DAY AFTER TREATMENT folic acid 1 mg tablet 1 mg PO DAILY Rx Instructions: BEGINE 1 WEEK BEFORE INITIAL PEMETREXED DOSE AND CONTINUE UNTIL 3 WEEKS AFTER FINAL DOSE Referrals Referrals: Clinton Anand DO [Primary Care Provider] - Discharge Problem: Respiratory failure Qualifiers: Chronicity: acute Respiratory failure complication: hypoxia Qualified Code(s): J96.01 - Acute respiratory failure with hypoxia Pneumonia Qualifiers: Pneumonia type: due to unspecified organism Laterality: unspecified laterality Lung location: unspecified part of lung Qualified Code(s): J18.9 - Pneumonia, unspecified organism
[2024-12-22] MEDS: SODIUM CHLORIDE 0.9% 1,000 ML IV ONE (20:11)
[2024-12-22] MEDS: methylPREDNISolone 125 MG/2 ML VIAL IV STA (20:14)
[2024-12-22 20:20] LABS: iSTAT Creatinine 1.1 mg/dl (0.6-1.3); iSTAT Hemoglobin 11.2 g/dl (12.0-16.0); iSTAT Ionized Calcium 1.14 mmol/l (1.12-1.32); iSTAT Potassium 4.6 mmol/L (3.3-5.0)
[2024-12-22 20:23] LABS: Base Excess VBG 11.5 mEq/L; Basophils # (auto) 0.01 K/uL (0.00-0.20); Basophils % (auto) 0.1 %; HCO3 VBG 39 mmol/L; Hemoglobin 11.1 g/dl (12.0-16.0); Immature Granulocytes # (auto) 0.09 K/uL (0.01-0.20); Immature Granulocytes % (auto) 0.9 %; Lymphocytes # (auto) 0.46 K/uL (1.20-3.40); Lymphocytes % (auto) 4.8 %; Mean Corpuscular Hemoglobin 31.5 pg (25.0-34.0); Mean Corpuscular Hgb Conc 32.6 g/dL (32.0-36.0); Mean Corpuscular Volume 96.6 fL (80.0-100.0); Mean Platelet Volume 9.2 fL (9.4-12.4); Monocytes # (auto) 0.61 K/uL (0.11-0.59); Monocytes % (auto) 6.3 %; Neutrophils # (auto) 8.51 K/uL (1.40-6.50); Neutrophils % (auto) 87.9 %; Oxygen Saturation VBG < 60.0 %; PCO2 VBG 61 mmHg (38-50); PO2 VBG < 20 mmHg; Platelet Count 215 K/uL (130-400); RDW Coefficient of Variation 13.8 % (11.5-14.5); RDW Standard Deviation 48.8 fL (36.4-46.3); Red Blood Count 3.52 M/uL (4.20-5.40); White Blood Count 9.68 K/ul (4.8-10.8); pH VBG 7.41 (7.36-7.41)
[2024-12-22] MEDS: ACETAMINOPHEN 1,000 MG/100 ML VIAL IV STA (20:28)
[2024-12-22] MEDS: SODIUM CHLORIDE 0.9% 500 ML IV ONE ×2 (20:39→21:09)
[2024-12-22] MEDS: ALBUT/IPRATROP 3MG/0.5MG NEB 3 ML VIAL NEB ONE (20:43)
[2024-12-22 20:46] LABS: Partial Thromboplastin Ratio 1.2; Partial Thromboplastin Time 31 Seconds (21-31); Prothrombin Time 11.3 Seconds (9.0-12.0)
--- NOTE | 2024-12-22 20:50 | XRay Report ---
Exam(s): XR CXR 1 VIEW EXAM: XR Chest, 1 View CLINICAL HISTORY: Sepsis. TECHNIQUE: Frontal view of the chest. COMPARISON: Portable chest single view December 21, 2024 FINDINGS: Lungs: Similar to slightly increased subsegmental opacities at the right lung base with similar opacification of the left lower lung zone. The pulmonary suture appears minimally improved from the previous examination. Pleural space: A left pleural effusion is noted. No pneumothorax. Heart: The cardiac silhouette is partially obscured but thought to be stable. Mediastinum: The mediastinal contours are stable. The trachea is midline. Bones/joints: Unremarkable. No acute fracture. IMPRESSION: 1. Similar to slightly increased subsegmental opacities at the right lung base with similar opacification of the left lower lung zone. The left pleural effusion is stable in appearance. 2. The pulmonary suture appears minimally improved from the previous examination. Electronically signed by: Gagan Eugene MD 12/22/24 20:49 PM
[2024-12-22 20:54] LABS: Alanine Aminotransferase 47 U/L (7-52); Albumin Level 3.4 gm/dl (3.4-5.0); Alkaline Phosphatase 54 U/L (34-104); Anion Gap 7 (3-11); Aspartate Aminotransferase 123 U/L (13-39); BUN Creatinine Ratio 29.2 (10-20); Bilirubin,Total 0.4 mg/dl (0.2-1.0); Blood Urea Nitrogen 28 mg/dl (6-23); Calcium 9.5 mg/dl (8.6-10.3); Carbon Dioxide 34 mmol/L (21-32); Chloride 97 mmol/L (98-107); Glucose 109 mg/dl (70-99(Fasting)); Magnesium 1.9 mg/dl (1.7-2.4); Potassium 4.7 mmol/L (3.5-5.1); Sodium 138 mmol/L (136-145); Total Protein 7.1 gm/dl (6.0-8.3); Troponin I High Sensitivity 2286.7 pg/ml (0-14)
[2024-12-22] MEDS: PIPERACILLIN/TAZOBACTAM 4.5 GM/100 ML BAG IV ONE (21:12)
[2024-12-22] MEDS: NOREPINEPHRINE/D5W 4 MG/250 ML IV ONE (21:20)
[2024-12-22] MEDS: NOREPINEPHRINE/D5W 4 MG/250 ML PLCT IV SCH (21:20)
[2024-12-22 21:33] LABS: Adenovirus PCR Not Detected (NotDetected); Bordetella parapertussis PCR Not Detected (NotDetected); Bordetella pertussis PCR Not Detected (NotDetected); Chlamydia pneumoniae PCR Not Detected (NotDetected); Coronavirus 229E PCR Not Detected (NotDetected); Coronavirus CoV-2 (COVID19)PCR Not Detected (NotDetected); Coronavirus HKU1 PCR Not Detected (NotDetected); Coronavirus NL63 PCR Not Detected (NotDetected); Coronavirus OC43PCR Not Detected (NotDetected); Human Metapneumovirus PCR Not Detected (NotDetected); Influenza A (H1 2009) PCR DETECTED (NotDetected); Influenza B PCR Not Detected (NotDetected); Mycoplasma pneumoniae PCR Not Detected (NotDetected); Parainfluenza Virus 1 PCR Not Detected (NotDetected); Parainfluenza Virus 2 PCR Not Detected (NotDetected); Parainfluenza Virus 3 PCR Not Detected (NotDetected); Parainfluenza Virus 4 PCR Not Detected (NotDetected); Respiratory Syncytial VirusPCR Not Detected (NotDetected); Rhinovirus/Enterovirus PCR Not Detected (NotDetected)
--- NOTE | 2024-12-22 21:42 | History & Physical Report ---
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 Electronically signed by: Gagan Eugene MD 12/22/24 23:40 PM Code Status & VTE Plan Code Status Full code As per discussion with , POA VTE Prophylaxis Plan VTE Prophylaxis will be ordered: Yes Critical Care Time 50 minutes PG Care Time/CCT Total # of Minutes Spent Total Time Spent with Patient: Total time spent is greater than 50% in coordination of care (as documented) at patient's floor/unit and/or counseling patient: Coding Level of Care Code 53915 INT INP/OBS CARE 3/75MIN Diagnoses Cardiogenic shock R57.0 Acute non-ST elevation myocardial infarction (NSTEMI) I21.4 Acute respiratory failure with hypoxia J96.01 Influenza A virus subtype H1 2009 pandemic strain present J10.1 Pleural effusion J90 Lung cancer metastatic to brain C34.90; C79.31
[2024-12-22 22:18] LABS: Appearance Urine Cloudy (Clear); Bacteria Urine Automated 3+ (None Seen); Bilirubin Urine Negative (Negative); Blood Urine 1+ (Negative); Cast Urine Automated >20 /lpf (0-2); Color Urine Yellow; Glucose Urine UA Negative (Negative); Granular Casts Urine Present /lpf (None Prsent); Ketones Urine Trace (Negative); Leukocyte Esterase Urine Negative (Negative); Nitrite Urine Negative (Negative); Protein Urine 2+ (Negative); Specific Gravity Urine 1.024 (1.000-1.030); Urobilinogen Urine Negative (Negative); WBC Urine Automated 0-5 /hpf (0-5)
[2024-12-22] MEDS ORDERED: ALBUTEROL 0.083% NEBU SOLN 3 ML VIAL NEB PRN (22:50)
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
[2024-12-22] MEDS ORDERED: ACETAMINOPHEN 1000 MG/100 ML IV IV PRN (23:20)
[2024-12-22] MEDS ORDERED: ONDANSETRON INJ 2 MG/ML 2 ML VIAL IV PRN (23:20)
[2024-12-22] MEDS ORDERED: ALBUT/IPRATROP 3MG/0.5MG NEB 3 ML VIAL INH PRN (23:20)
--- NOTE | 2024-12-22 23:39 | CT Scan Report ---
Exam(s): CT CHEST Without Contrast EXAM: CT Chest Without Intravenous Contrast CLINICAL HISTORY: Respiratory failure. Lung mass. Effusion. TECHNIQUE: Axial computed tomography images of the chest without intravenous contrast. CTDI is 12.08 mGy and DLP is 414.58 mGy-cm. Automated exposure control was utilized for the study. A dose lowering technique was utilized adhering to the principles of ALARA. COMPARISON: No relevant prior studies available. FINDINGS: Lungs: There is an abnormal rounded mass with internal irregular calcifications involving the left lower lobe. Detailed evaluation limited without contrast and surrounding effusion. The mass is estimated roughly at 6.1 x 7.1 cm. Patchy irregular airspace opacities noted in the posterior left upper lobe and both lower lobes. There are some nodular components peripherally in the left upper lobe and anterior basal segment of the left lower lobe superiorly. Pleural space: A right pleural effusion is noted layering posteriorly. No loculation. The effusion measures approximately 2.5 cm. No pneumothorax. Heart: The cardiac chambers are normal in caliber. Prominent coronary artery calcification. No significant pericardial effusion. Bones/joints: No acute osseous abnormality. No definite osseous metastatic disease. No dislocation. Soft tissues: Unremarkable. Vasculature: The thoracic aorta is heavily calcified but is normal in caliber. Lymph nodes: There are abnormal prominent subcarinal and left hilar calcified lymph nodes with some nonspecific paratracheal lymph nodes which also demonstrate internal calcification. IMPRESSION: 1. There is an abnormal rounded mass with internal irregular calcifications involving the left lower lobe. Detailed evaluation limited without contrast and surrounding effusion. The mass is estimated roughly at 6.1 x 7.1 cm. A neoplastic process is suspected. 2. Patchy irregular airspace opacities noted in the posterior left upper lobe and both lower lobes. There are some nodular components peripherally in the left upper lobe and anterior basal segment of the left lower lobe superiorly. Subtle satellite metastatic disease is suspected superimposed on bilateral pneumonia. 3. A right pleural effusion is noted layering posteriorly. No loculation. The effusion measures approximately 2.5 cm. 4. There are abnormal prominent subcarinal and left hilar calcified lymph nodes with some nonspecific paratracheal lymph nodes which also demonstrate internal calcification. Favor or treated metastatic lymphadenopathy or lymphoma of her Castleman's disease. Electronically signed by: Gagan Eugene MD 12/22/24 23:38 PM
--- NOTE | 2024-12-22 23:41 | CT Scan Report ---
Exam(s): CT HEAD Without Contrast EXAM: CT Head Without Intravenous Contrast CLINICAL HISTORY: Confusion. Brain mets. TECHNIQUE: Axial computed tomography images of the head/brain without intravenous contrast. Automated exposure control was utilized for the study. A dose lowering technique was utilized adhering to the principles of ALARA. COMPARISON: No relevant prior studies available. FINDINGS: Brain: There are abnormal dense lesions in the periventricular medial left occipital temporal region measuring 14 mm. There are also abnormal lesions involving the superior aspect of the right cerebellar hemisphere. Detailed evaluation limited without contrast. No intracranial hemorrhage. No significant mass-effect. No significant white matter disease. Ventricles: Unremarkable. No ventriculomegaly. Bones/joints: Unremarkable. No acute fracture. Soft tissues: Unremarkable. Sinuses: Unremarkable as visualized. No acute sinusitis. Mastoid air cells: Unremarkable as visualized. No mastoid effusion. IMPRESSION: 1. There are abnormal dense lesions in the periventricular medial left occipital temporal region measuring 14 mm. There are also abnormal lesions involving the superior aspect of the right cerebellar hemisphere. Detailed evaluation limited without contrast. The primary consideration is metastatic disease. Recommend MRI with contrast to fully assess for further potential metastatic disease. 2. No intracranial hemorrhage. No significant mass-effect. No midline shift. Electronically signed by: Gagan Eugene MD 12/22/24 23:40 PM
[2024-12-23] MEDS: ALBUT/IPRATROP 3MG/0.5MG NEB 3 ML VIAL INH SCH (00:02)
--- OUTSIDE RECORDS SUMMARY | 2024-12-23 00:33 | External Medical Summary | Continuity of Care Document ---
Author Name Unknown Organization [facility] [address] Address [address] [place], [place] [id number] Care Team Providers Care Flight Steward Name Role Phone Clinton Anand Primary Care Physician [phone] [id number] Date(s): 12/19/24 - 12/19/24 [facility] [address] [facility] [address] [facility] [place], [place] [phone] Encounter Diagnosis Occlusion and stenosis of bilateral carotid arteries(Final) - Discharge Disposition: Home or Self Care Attending Physician: MD Gibson Eugene J Referring Physician: MD Gibson Eugene J Encounter Type: Clinic Allergies, Adverse Reactions, Alerts No Known Allergies Medications acetaminophen-oxycodone 325 mg-5 mg oral tablet Start: 12/05/24 1:26:00 PM EST, Refills: 0 Start Date: 12/05/24 Status: Ordered Repeat number: 1 aspirin 81 mg oral delayed release tablet Start: 09/07/23 2:44:00 PM EST, 1 tab, PO, Daily Start Date: 09/07/23 Status: Ordered Repeat number: 1 calcium (as carbonate) 500 mg oral tablet Start: 09/07/23 2:44:00 PM EST, 1 tab po daily Start Date: 09/07/23 Status: Ordered Repeat number: 1 cholecalciferol 25 mcg (1000 intl units) oral capsule Start: 09/07/23 2:46:00 PM EST, 1 cap, PO, Daily Start Date: 09/07/23 Status: Ordered Repeat number: 1 dexAMETHasone 4 mg oral tablet Start: 12/05/24 1:27:00 PM EST, 1 tab, PO, Daily, 1 hr peior to radiation Start Date: 12/05/24 Status: Ordered Repeat number: 1 fenofibrate 145 mg oral tablet Start: 09/07/23 2:43:00 PM EST, 1 tab, PO, Daily Start Date: 09/07/23 Status: Ordered Repeat number: 1 Incruse Ellipta 62.5 mcg/inh inhalation powder INHALE 1 PUFF BY MOUTH ONCE DAILY Start Date: 10/11/24 Status: Ordered Repeat number: 1 levothyroxine 50 mcg (0.05 mg) oral tablet TAKE 1 TABLET BY MOUTH IN THE MORNING Start Date: 09/07/23 Status: Ordered Repeat number: 1 lidocaine topical 5% patch APPLY 1 PATCH TOPICALLY DAILY FOR CANCER RELATED PAIN FOR 1 MONTH. LEAVE ON MOST PAINFUL AREA FOR UP TO 12 HOURS. Start Date: 12/05/24 Status: Ordered Repeat number: 1 Metoprolol Succinate ER 50 mg oral tablet, extended release Start: 09/07/23 2:44:00 PM EST, 1 tab, PO, Daily Start Date: 09/07/23 Status: Ordered Repeat number: 1 Plavix 75 mg oral tablet Start: 12/05/24 1:56:00 PM EST, 1 tab, PO, Daily, Disp# 30 tab, Refills: 11, Pharmacy: [id number] Start Date: 12/05/24 Status: Ordered Quantity: 30.0 Unit: tab Repeat number: 12 Probiotic Formula (Bacillus Coagulans) Start: 03/13/24 1:05:00 PM EDT, 1 cap, PO, Daily Start Date: 03/13/24 Status: Ordered Repeat number: 1 rosuvastatin 20 mg oral tablet Start: 09/07/23 2:43:00 PM EST, 1 tab, PO, Daily Start Date: 09/07/23 Status: Ordered Repeat number: 1 Problem List Condition Confirmation Course Effective Dates Status Health St atus Informant Carotid stenosis Confirmed Active Results Laboratory List Name Date Platelet Function (P2Y12 Receptor) (PLT FUNCTION P2Y12) 12/19/24 Most recent to oldest [Reference Range]: 1 P2Y12 Platelet Function [194-418 PRU] 13 8 PRU 1 *LOW* (12/19/24 11:57 AM) 1Result Comment: PRU reference range is 194-418 (healthy adults, no drug treatment). Post Drug Results: Lower PRU levels are expected following treatment with antiplatelet drugs. Post-treatment values are usually below the stated reference range above. The post-drug PRU values reported in the [employer] P2Y12 package insert are 18-435. This broader range reflects the variability in drug response and is consistent with significant numbers of patients with decreased sensitivity to P2Y12 receptor antagonists (prasugrel or clopidogrel). Clinical studies suggest an on-treatment PRU>230 indicates less than optimal response to therapy, and PRU<208 at 12-24 hours after percutaneous intervention or during follow-up is associated with a lower risk of cardiovascular events (1). (1).Standard-vs high-dose clopidogrel based on platelet function testing after percutaneouscoronary intervention: the GRAVITAS randomized trial. Kirby et al. MODE. 2010January 14; 305(11): 1442-8431. doi: 10.1001/mode.2010.290 Social History Social History Type Response Smoking Status Never smoked cigaret radha Sex Female Sex Representation Female (finding) Patient Care team information Care Team Personnel Name: DO Anand Philip A Position: Referring Member Role: Primary Care Provider Address: [address] [place] [address] Telecom: [phone] Name: LEONELA Lincoln Lynn Position: Physician Dictating Machine Transcriber Exempt - Vasc Surg Member Role: Lifetime Relationship Address: [address] [place] [address] Telecom: [phone] Insurance Providers Guarantor name: RISHABH Health Plan Information #: 1 Payer: [employer] Member Number: [id number] Policy Number: NA Group Number: [id number] Health Plan Information #: 2 Payer: [employer] GIANNA Member Number: NA Policy Number: NA Group Number: NA Health Plan Information #: 3 Payer: [employer] Member Number: [id number] Policy Number: NA Group Number: NA
[2024-12-23] MEDS ORDERED: STAT IV Infusion **Titration per Protocol STA (00:38)
--- NOTE | 2024-12-23 00:44 | Billing Data ---
Date of Service December 23, 2024 Coding Level of Care Code 62766 CRITICAL CARE
[2024-12-23] MEDS: VASOPRESSIN 20 UNITS in SODIUM CHLORIDE 0.9% 100 ML IV SCH (00:54)
[2024-12-23] MEDS: OSELTAMIVIR PHOSPHATE SUSP 30 MG/5 ML UDP PO SCH (01:51)
--- NOTE | 2024-12-23 02:48 | Ultrasound Report ---
EXAM: US venous doppler LE BI CLINICAL HISTORY: R heart dilation, rule out DVT. TECHNIQUE: Ultrasound examination of bilateral lower extremity veins was performed in real time and duplex. One or more of the following were performed- spectral analysis, resistive index, waveform analysis, and pulsed Doppler. COMPARISON: None. FINDINGS: Portable exam in ICU. Limited visualization of RT CFV due to CVC placement and bandage. Distal right popliteal vein shows internal echogenic content with no flow suggesting thrombosis. Normal phasic, non-pulsatile and spontaneous flow is noted in visualized parts of bilateral common femoral, superficial femoral, left popliteal and posterior tibial and peroneal veins. Visualized veins of both lower extremities demonstrate normal compressibility. No sonographic evidence of acute deep vein thrombosis (DVT) is detected in the visualized veins of both lower extremities. Compression and Augmentation: All evaluated veins compress fully with applied transducer pressure. IMPRESSION: 1. Distal right popliteal vein shows internal echogenic content with no flow suggesting thrombosis, DVT should be considered, clinical correlation and further follow-up is advised. 2. Portable exam in ICU. Limited visualization of RT CFV due to CVC placement and bandage. Disclaimer: DVT could be missed early in the disease when clot burden is minimal. For patients with moderate and high pretest probability of DVT and negative ultrasound, the [place] [employer] clinical guidelines recommend testing with a D-dimer assay or repeat ultrasound in 5-7 days. If symptoms worsen, the Society of radiologists in Ultrasound recommends repeating ultrasound even earlier. Electronically signed by Luana Huertas 12-23-2024 02:48 AM
[2024-12-23] MEDS: PIPERACILLIN/TAZOBACTAM 4.5 GM/100 ML BAG IV SCH (03:10)
[2024-12-23] MEDS: OPTIRAY 320 125ml IV ONE (03:50)
--- NOTE | 2024-12-23 04:42 | CT Scan Report ---
EXAM: CT angio chest PE protocol CLINICAL HISTORY: Right popliteal DVT, respiratory failure, hypotension. TECHNIQUE: CT angiography of the chest was performed with intravenous contrast with the following protocol: axial images with, reconstructed coronal and sagittal images. One of these 3D techniques was utilized: Maximum Intensity Pixel (MIP), 3D Reconstructed Images, Volume Rendered Images, Surface Shaded Rendering. One of the following dose reduction techniques was utilized for this exam: Automated exposure control, adjustment of the mA and/or kV according to patient size, and use of iterative reconstruction. CTDI: 34.2 mGy, DLP: 703.4 mGy*cm. COMPARISON: CT dated 11/02/2024 and X-ray dated 12/11/2024. FINDINGS: Aorta and Great Vessels: Thoracic Aorta: Diffuse aortic atheromatous calcification there is no aneurysmal dilatation or dissection Pulmonary Arteries: The main pulmonary artery and its branches are patent. No evidence of pulmonary embolism or significant stenosis. Heart: Redemonstration of cardiomegaly. Pericardium: No pericardial effusion or thickening. Lungs and Pleura: Newly developed mild to moderate amount of right pleural effusion with lower lobe collapse and alveolar/airspace opacities. Progression of the amount of the left pleural effusion and underlying lower lobe collapse. Regression of the alveolar and airspace opacities previously seen at the left upper lobe lingular segment and left lower lobe mainly superior segment. Redemonstration of the left pulmonary interstitial thickening reticulations and scattered nodular densities. Mediastinum: Redemonstration of the confluent calcified lymph nodes seen at mediastinal and hilar locations encasing and attenuating the left lower lobe bronchi. Normal appearance of the trachea and central bronchi. Hilar Structures: Redemonstration of the confluent calcified lymph nodes seen at mediastinal and hilar locations encasing and attenuating the left lower lobe bronchi. Chest Wall: No mass lesions or abnormalities in the chest wall. Vascular Structures: Superior Vena Cava: Patent without evidence of stenosis or thrombus. Inferior Vena Cava: Patent without evidence of stenosis or thrombus. Bones and Soft Tissues: Osteopenia spondylosis and dextroscoliosis. IMPRESSION: 1. No evidence of acute pulmonary thromboembolism. 2. Newly developed moderate right pleural effusion and lower lobe alveolar/airspace opacities likely inflammatory/pneumonia. 3. Progression of the left pleural effusion and collapse with mild regression of the left lung lower lobe and lingular inflammatory changes. 4. Redemonstration of the hilar and mediastinal calcified lymphadenopathy occluding left lower lobe bronchi 5. Redemonstration of cardiomegaly. 6. Redemonstration of the left pulmonary interstitial thickening reticulations and scattered nodular densities. Electronically signed by Luana Huertas 12-23-2024 04:42 AM
[2024-12-23 05:19] LABS: Hematocrit (blood only) 34.6 % (37.0-47.0); Hemoglobin 11.2 g/dl (12.0-16.0); Mean Corpuscular Hemoglobin 31.5 pg (25.0-34.0); Mean Corpuscular Hgb Conc 32.4 g/dL (32.0-36.0); Mean Corpuscular Volume 97.5 fL (80.0-100.0); Mean Platelet Volume 9.1 fL (9.4-12.4); Platelet Count 198 K/uL (130-400); RDW Coefficient of Variation 13.7 % (11.5-14.5); RDW Standard Deviation 49.4 fL (36.4-46.3); Red Blood Count 3.55 M/uL (4.20-5.40); White Blood Count 9.48 K/ul (4.8-10.8)
[2024-12-23 05:27] LABS: Albumin Globulin Ratio 0.9 (0.9-2); BUN Creatinine Ratio 30.3 (10-20); Bilirubin,Total 0.4 mg/dl (0.2-1.0); Calcium 8.8 mg/dl (8.6-10.3); Creatinine Clr Calc Pharmacy 53.7 ml/min; Globulin 3.5 gm/dl (2.5-4.0); Magnesium 1.7 mg/dl (1.7-2.4); Phosphorus 3.2 mg/dl (2.5-4.9); Total Protein 6.5 gm/dl (6.0-8.3)
[2024-12-23 05:36] LABS: Troponin I High Sensitivity 1389.1 pg/ml (0-14)
[2024-12-23] MEDS: ICU Protocol for HYPERglycemia SCH (05:38)
[2024-12-23] MEDS ORDERED: GLUCOSE 40% GEL 15 GM TUBE PO PRN (05:39)
[2024-12-23] MEDS ORDERED: CARBOHYDRATES FOR HYPOGLYCEMIA PO PRN ×3 (05:39→18:24)
[2024-12-23] MEDS ORDERED: GLUCOSE 10 TAB/TUBE PO PRN (05:39)
[2024-12-23] MEDS ORDERED: DEXTROSE 50% 50 ML SYRINGE IV PRN ×2 (05:39→18:24)
[2024-12-23 05:42] LABS: Partial Thromboplastin Time 28 Seconds (21-31)
[2024-12-23] MEDS: ICU ELECTROLYTE REPLACEMENT PROTOCOL SCH (05:43)
[2024-12-23 05:51] LABS: Basophils # (auto) 0.01 K/uL (0.00-0.20); Basophils % (auto) 0.1 %; Immature Granulocytes # (auto) 0.12 K/uL (0.01-0.20); Immature Granulocytes % (auto) 1.3 %; Lymphocytes # (auto) 0.28 K/uL (1.20-3.40); Monocytes # (auto) 0.27 K/uL (0.11-0.59); Monocytes % (auto) 2.8 %; Neutrophils % (auto) 92.8 %; RBC Morphology Unremarkable
[2024-12-23] MEDS: MAGNESIUM SULFATE / D5W 1 GM/100 ML BAG IV SCH (05:58)
[2024-12-23] MEDS: INSULIN ASPART PER UNIT CHARGE SC SCH ×2 (05:58→20:28)
[2024-12-23] MEDS ORDERED: ICU ELECTROLYTE REPLACEMENT PROTOCOL SCH (06:00)
[2024-12-23] MEDS: ACETAMINOPHEN 1,000 MG/100 ML VIAL IV PRN (06:07)
[2024-12-23] MEDS: STAT IV Infusion **Titration per Protocol STA (06:32)
[2024-12-23] MEDS ORDERED: ICU Protocol for HYPERglycemia SCH ×2 (07:30)
[2024-12-23] MEDS: PANTOprazole 40 MG/10 ML SYR IV SCH (09:45)
--- NOTE | 2024-12-23 09:52 | XCELERA ---
[id number] \\[id number]
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
--- NOTE | 2024-12-23 13:24 | Pulmonology Progress Note ---
Date of Service December 23, 2024 Assessment & Plan (1) Influenza A virus subtype H1 2009 pandemic strain present: (2) Pleural effusion: (3) Acute non-ST elevation myocardial infarction (NSTEMI): (4) Pneumonia: Laterality: unspecified laterality Lung location: unspecified part of lung Pneumonia type: due to unspecified organism Qualified Code(s): J18.9 - Pneumonia, unspecified organism (5) Acute respiratory failure with hypoxia: (6) Lung cancer metastatic to brain: (7) Shock: (8) Elevated troponin: (9) Antiplatelet or antithrombotic long-term use: (10) Cerebrovascular disease: (11) Coronary artery disease: Plan Reason Critically Ill: Shock, undifferentiated, septic vs. cardiogenic. Acute on chronic hypoxemic respiratory failure, Influenza. 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 Neuro - CAM ICU: negative RASS GOAL 0 Avoid sedating medications Scheduled to undergo TCAR of the right carotid artery on Wednesday. This will likely need to be put on hold until she is fully recovered from her acute illness. Cardiac - Echo 12/23/2024 with an EF of 50 to 55% RV mildly dilated with normal function. NSTEMI likely type II i/s/o hypoxia and ?RV dysfunction Patient off vasopressors at this time. Hold metoprolol for the time being until pressures improve further. EKG NSR, no acute ischemic changes Cardiology consult noted. Troponin likely from demand ischemia. Continue to trend until peak. Restart home aspirin, Plavix, Zetia, rosuvastatin and fenofibrate No PE on CT chest Respiratory - Transitioned to NC without incident SpO2 88-92% DuoNeb scheduled, PRN albuterol Resume Incruse Ellipta. GI - Diet: Advance diet as tolerated. SUP: PPI Bowel regimen: Miralax AST mildly elevated probably from viral illness. Continue to trend LFTs. RENAL/LYTES - No acute concerns Replete electrolytes as indicated Parker for accurate I/Os Maintain net even to net negative ENDO - Chronic dexamethasone. Continue stress dose steroids (hydrocortisone 50 mg every 6 hours) Home levothyroxine BG 140-180 per SCCM guidelines ISS if needed while inpatient HEME - Ultrasound of lower extremities revealed distal right popliteal vein thrombosis. Patient with extensive intracranial metastases. Will ask hematology/oncology for their input. Enoxaparin DVT PPX ID - Increase Tamiflu to 75 mg twice daily. Zosyn for possible superimposed bacterial pneumonia. MRSA screen negative. Left effusion noted likely related to volume overload. Possible parapneumonic effusion. The patient continues to spike fevers in the next 24 to 48 hours, may need to consider thoracentesis. Urine Legionella antigen ordered. BC x2 pending, Flu +, UA negative nitrite/LE but 3+ bacteria, UCx pending, procalcitonin elevated, normal WBC with neutrophil predominance LINES/TUBES/DRAINS - PIV x2 R femoral CVC (Day #1), order placed to remove central line Parker (Day #1) DVT PROPHYLAXIS - Enoxaparin Patient will be transferred to PCU. Recommend goals of care discussion between oncology, primary service and palliative care medicine given lung cancer with extensive brain mets. Admission and Anticipated Discharge Date Admission Date: December 22, 2024 Subjective Patient seen examined this morning. Off pressors. Hypoxemia slowly improving. Patient wants to eat and has an increased appetite. Denies any significant dizziness, chest pain or shortness of breath at rest. Review of Systems Review of Systems: All systems reviewed & are unremarkable except as noted in HPI & below Physical Exam Constitutional: + frail appearing; no acute distress Eyes: PERRL, conjunctivae normal, anicteric sclerae ENMT: external ear and nose normal, oropharynx normal Neck: trachea midline, no thyromegaly Respiratory: normal respiratory effort Auscultation: + diminished lung sounds and + crackles; no wheezes Cardiovascular: Rate/Rhythm: regular rate and regular rhythm Heart Sounds: no murmur Vessels: no JVD Extremities: normal capillary refill; no edema No JVD ilicited with RUQ pressure. No peripheral edema appreciated on exam. Gastrointestinal (Abdomen): normal bowel sounds, soft, nontender, no hepatosplenomegaly Skin: no rashes, warm and dry Neurologic: PERRL, EOMI, accommodation nl, no face palsy, no dysarthria Psychiatric: A+Ox3, euthymic affect Genitourinary: parker in place draining yellow urine Results & Data Results & Data Vital Signs (Past 12 Hours) Vital Signs Temp Pulse Pulse Resp BP Pulse Ox O2 Del Method 12/23/24 08:08 73 12 94 Nasal Cannula 12/23/24 08:00 70 12/23/24 07:45 36.4 C L 68 20 92 12/23/24 07:45 127/71 12/23/24 07:39 93/55 L 12/23/24 07:36 88/51 L 12/23/24 07:33 36.7 C 65 16 91 12/23/24 07:30 87/50 L 12/23/24 07:30 87/50 L 12/23/24 07:30 87/50 L 12/23/24 07:24 36.7 C 68 18 93 12/23/24 07:15 36.7 C 67 15 94 12/23/24 07:15 100/55 L 12/23/24 07:15 100/55 L 12/23/24 07:15 100/55 L 12/23/24 07:15 100/55 L 12/23/24 07:09 36.8 C 67 15 92 12/23/24 07:00 120/65 12/23/24 06:54 36.3 C L 72 18 93 12/23/24 06:48 36.8 C 67 19 94 12/23/24 06:45 109/62 12/23/24 06:45 109/62 12/23/24 06:45 109/62 12/23/24 06:39 36.6 C 67 16 93 12/23/24 06:30 113/60 12/23/24 06:30 113/60 12/23/24 06:30 36.8 C 68 18 113/60 92 Nasal Cannula 12/23/24 06:24 36.8 C 71 21 91 12/23/24 06:21 36.7 C 73 23 93 12/23/24 06:15 126/68 93 Nasal Cannula 12/23/24 06:15 126/68 12/23/24 06:00 139/69 12/23/24 05:51 36.7 C 73 19 93 Nasal Cannula 12/23/24 05:45 136/72 12/23/24 05:45 136/72 12/23/24 05:45 36.7 C 75 21 93 12/23/24 05:33 36.7 C 70 19 92 Nasal Cannula 12/23/24 05:30 126/66 12/23/24 05:18 36.6 C 71 19 93 Nasal Cannula 12/23/24 05:15 123/67 12/23/24 05:00 36.6 C 72 12 93 Nasal Cannula 12/23/24 05:00 119/66 12/23/24 05:00 119/66 12/23/24 05:00 119/66 93 12/23/24 04:54 36.5 C 72 22 91 12/23/24 04:42 36.5 C 72 20 94 12/23/24 04:36 36.5 C 72 23 91 12/23/24 04:31 122/63 12/23/24 04:31 122/63 12/23/24 04:31 122/63 94 Nasal Cannula 12/23/24 04:18 36.4 C L 68 17 96 12/23/24 04:15 133/72 12/23/24 04:15 36.4 C L 75 19 96 Nasal Cannula 12/23/24 04:12 36.4 C L 78 16 112/70 94 Nasal Cannula 12/23/24 03:49 36.4 C L 79 20 151/72 H 94 12/23/24 03:42 78 20 93 12/23/24 03:21 36.4 C L 69 23 95 Nasal Cannula 12/23/24 03:15 121/65 12/23/24 03:03 36.4 C L 68 18 95 Nasal Cannula 12/23/24 03:00 123/67 95 12/23/24 03:00 123/67 12/23/24 03:00 123/67 12/23/24 02:57 36.4 C L 72 16 94 12/23/24 02:45 133/67 12/23/24 02:45 133/67 12/23/24 02:45 133/67 12/23/24 02:45 133/67 12/23/24 02:45 69 18 92 12/23/24 02:30 129/67 94 12/23/24 02:30 129/67 12/23/24 02:27 36.7 C 66 16 94 12/23/24 02:15 36.8 C 69 16 94 12/23/24 02:00 124/66 12/23/24 02:00 124/66 12/23/24 01:54 36.9 C 71 17 95 12/23/24 01:45 129/71 12/23/24 01:45 36.9 C 71 16 129/71 95 Nasal Cannula 12/23/24 01:33 36.9 C 73 16 96 12/23/24 01:30 120/69 12/23/24 01:30 120/69 12/23/24 01:30 120/69 12/23/24 01:30 120/69 12/23/24 01:27 37.0 C 74 16 96 12/23/24 01:15 37.0 C 74 17 96 12/23/24 01:15 123/69 O2 Flow Rate FiO2 12/23/24 08:08 5 92 12/23/24 08:00 12/23/24 07:45 12/23/24 07:45 12/23/24 07:39 12/23/24 07:36 12/23/24 07:33 12/23/24 07:30 12/23/24 07:30 12/23/24 07:30 12/23/24 07:24 12/23/24 07:15 12/23/24 07:15 12/23/24 07:15 12/23/24 07:15 12/23/24 07:15 12/23/24 07:09 12/23/24 07:00 12/23/24 06:54 12/23/24 06:48 12/23/24 06:45 12/23/24 06:45 12/23/24 06:45 12/23/24 06:39 12/23/24 06:30 12/23/24 06:30 12/23/24 06:30 4 12/23/24 06:24 12/23/24 06:21 12/23/24 06:15 5 12/23/24 06:15 12/23/24 06:00 12/23/24 05:51 5 12/23/24 05:45 12/23/24 05:45 12/23/24 05:45 12/23/24 05:33 5 12/23/24 05:30 12/23/24 05:18 5 12/23/24 05:15 12/23/24 05:00 5 12/23/24 05:00 12/23/24 05:00 12/23/24 05:00 12/23/24 04:54 12/23/24 04:42 12/23/24 04:36 12/23/24 04:31 12/23/24 04:31 12/23/24 04:31 5 12/23/24 04:18 12/23/24 04:15 12/23/24 04:15 5 12/23/24 04:12 5 12/23/24 03:49 5 12/23/24 03:42 12/23/24 03:21 5 12/23/24 03:15 12/23/24 03:03 5 12/23/24 03:00 5 12/23/24 03:00 12/23/24 03:00 12/23/24 02:57 12/23/24 02:45 12/23/24 02:45 12/23/24 02:45 12/23/24 02:45 12/23/24 02:45 12/23/24 02:30 5 12/23/24 02:30 12/23/24 02:27 12/23/24 02:15 12/23/24 02:00 12/23/24 02:00 12/23/24 01:54 12/23/24 01:45 12/23/24 01:45 5 12/23/24 01:33 12/23/24 01:30 12/23/24 01:30 12/23/24 01:30 12/23/24 01:30 12/23/24 01:27 12/23/24 01:15 12/23/24 01:15 PG Care Time/CCT Total # of Minutes Spent Total Time Spent with Patient: Total time spent is greater than 50% in coordination of care (as documented) at patient's floor/unit and/or counseling patient: Coding Level of Care Code 66094 SUB INP/OBS CARE 2/35MIN Diagnoses Influenza A virus subtype H1 2009 pandemic strain present J10.1 Pleural effusion J90 Acute non-ST elevation myocardial infarction (NSTEMI) I21.4 Pneumonia J18.9 Laterality: unspecified laterality Lung location: unspecified part of lung Pneumonia type: due to unspecified organism Acute respiratory failure with hypoxia J96.01 Lung cancer metastatic to brain C34.90; C79.31 Shock R57.9 Elevated troponin R79.89 Antiplatelet or antithrombotic long-term use Z79.02 Cerebrovascular disease I67.9 Coronary artery disease I25.10
[2024-12-23] MEDS ORDERED: ALBUT/IPRATROP 3MG/0.5MG NEB 3 ML VIAL INH PRN (13:35)
[2024-12-23] MEDS: ROSUVASTATIN CALCIUM 20 MG TAB PO SCH (13:47)
[2024-12-23] MEDS: CLOPIDOGREL BISULFATE 75 MG TAB PO SCH (13:48)
[2024-12-23] MEDS: ENOXAPARIN INJ 40 MG/0.4 ML SYR SQ SCH (13:48)
[2024-12-23] MEDS: EZETIMIBE 10 MG TAB PO SCH (13:49)
[2024-12-23] MEDS: UMECLIDINIUM BROMIDE 62.5MCG/BLISTER 7 PUFFS/INHALER INH SCH (13:49)
[2024-12-23] MEDS: ASPIRIN 81 MG ECTAB PO SCH (13:49)
--- NOTE | 2024-12-23 14:31 | Hospitalist Progress Note ---
Date of Service December 23, 2024 Assessment & Plan (1) Cardiogenic shock: Plan: This rather appears to be septic shock on admission. Now resolved. She is off pressor support (2) Acute non-ST elevation myocardial infarction (NSTEMI): Plan: Ruled out. Normal left ventricle with no regional wall motion abnormality seen on echo. Cardiology consultation appreciated (3) Pneumonia: Plan: Suspected bilateral pneumonia. Possibly obstructive in nature from her underlying lung cancer. Continue intravenous Zosyn, day 2. (4) Acute respiratory failure with hypoxia: Plan: Supplemental oxygen per nasal cannula to maintain saturation greater than 90%. Wean off as tolerated (5) Influenza A virus subtype H1 2009 pandemic strain present: Plan: Supportive care. Tamiflu (6) Lung cancer metastatic to brain: Plan: Known left lower lobe malignancy with metastatic disease involving the brain. Supportive care Plan To be determined Admission and Anticipated Discharge Date Admission Date: December 22, 2024 Subjective Alert and oriented. She is now off pressors. She has been seen by cardiology. Cardiac echo reveals a normal left ventricle with no regional wall motion abnormalities. There is no evidence of acute coronary syndrome. She appears to have septic shock on presentation related to her underlying pneumonia and viral illness. She is on Zosyn, day 2. She continues to require 5 L of oxygen early this morning. She will be transferred out of the ICU today, December 23. Review of Systems 2 Review of Systems: Constitutionalno fever or chills ENTno blurred vision, no double vision, no epistaxis, no sore throat Respiratoryproductive cough. Shortness of breath. No wheezing Cardiacno palpitations, no chest pain, no syncope Jarrell nausea, vomiting, diarrhea, melena, hematochezia GUno urinary retention, no urinary incontinence, no dysuria, no hematuria Musculoskeletalno joint pain, no muscle tenderness Skinno bruising, no rashes, no pruritus Neurono isolated weakness, no paresthesia, no weakness Psychno depression, no anxiety Physical Exam 2 Physical Exam: General-alert and oriented x3, no fever, no chills HEENT-head atraumatic and normocephalic, pupils equal and reactive to light, extraocular muscles intact Neck-no lymphadenopathy or thyromegaly, trachea midline Chest-bilateral rhonchi. No inspiratory rales. No wheezing Cardiac-regular rate and rhythm, normal S1 and S2 Abdomen-normal bowel sounds, no hepatosplenomegaly Extremities-no cyanosis, clubbing, or edema Neuro-cranial nerves II through XII intact, motor and sensory function within normal limits, strength symmetrical with generalized weakness, no focal deficits Psych-normal affect, normal mood Results & Data Results & Data Vital Signs (Past 12 Hours) Vital Signs Temp Pulse Pulse Resp BP Pulse Ox O2 Del Method 12/23/24 08:08 73 12 94 Nasal Cannula 12/23/24 08:00 Nasal Cannula 12/23/24 08:00 70 12/23/24 07:45 36.4 C L 68 20 92 12/23/24 07:45 127/71 12/23/24 07:39 93/55 L 12/23/24 07:36 88/51 L 12/23/24 07:33 36.7 C 65 16 91 12/23/24 07:30 87/50 L 12/23/24 07:30 87/50 L 12/23/24 07:30 87/50 L 12/23/24 07:24 36.7 C 68 18 93 12/23/24 07:15 36.7 C 67 15 94 12/23/24 07:15 100/55 L 12/23/24 07:15 100/55 L 12/23/24 07:15 100/55 L 12/23/24 07:15 100/55 L 12/23/24 07:09 36.8 C 67 15 92 12/23/24 07:00 120/65 12/23/24 06:54 36.3 C L 72 18 93 12/23/24 06:48 36.8 C 67 19 94 12/23/24 06:45 109/62 12/23/24 06:45 109/62 12/23/24 06:45 109/62 12/23/24 06:39 36.6 C 67 16 93 12/23/24 06:30 113/60 12/23/24 06:30 113/60 12/23/24 06:30 36.8 C 68 18 113/60 92 Nasal Cannula 12/23/24 06:24 36.8 C 71 21 91 12/23/24 06:21 36.7 C 73 23 93 12/23/24 06:15 126/68 93 Nasal Cannula 12/23/24 06:15 126/68 12/23/24 06:00 139/69 12/23/24 05:51 36.7 C 73 19 93 Nasal Cannula 12/23/24 05:45 136/72 12/23/24 05:45 136/72 12/23/24 05:45 36.7 C 75 21 93 12/23/24 05:33 36.7 C 70 19 92 Nasal Cannula 12/23/24 05:30 126/66 12/23/24 05:18 36.6 C 71 19 93 Nasal Cannula 12/23/24 05:15 123/67 12/23/24 05:00 36.6 C 72 12 93 Nasal Cannula 12/23/24 05:00 119/66 12/23/24 05:00 119/66 12/23/24 05:00 119/66 93 12/23/24 04:54 36.5 C 72 22 91 12/23/24 04:42 36.5 C 72 20 94 12/23/24 04:36 36.5 C 72 23 91 12/23/24 04:31 122/63 12/23/24 04:31 122/63 12/23/24 04:31 122/63 94 Nasal Cannula 12/23/24 04:18 36.4 C L 68 17 96 12/23/24 04:15 133/72 12/23/24 04:15 36.4 C L 75 19 96 Nasal Cannula 12/23/24 04:12 36.4 C L 78 16 112/70 94 Nasal Cannula 12/23/24 03:49 36.4 C L 79 20 151/72 H 94 12/23/24 03:42 78 20 93 12/23/24 03:21 36.4 C L 69 23 95 Nasal Cannula 12/23/24 03:15 121/65 12/23/24 03:03 36.4 C L 68 18 95 Nasal Cannula 12/23/24 03:00 123/67 95 12/23/24 03:00 123/67 12/23/24 03:00 123/67 12/23/24 02:57 36.4 C L 72 16 94 12/23/24 02:45 133/67 12/23/24 02:45 133/67 12/23/24 02:45 133/67 12/23/24 02:45 133/67 12/23/24 02:45 69 18 92 12/23/24 02:30 129/67 94 12/23/24 02:30 129/67 O2 Flow Rate FiO2 12/23/24 08:08 5 92 12/23/24 08:00 7 12/23/24 08:00 12/23/24 07:45 12/23/24 07:45 12/23/24 07:39 12/23/24 07:36 12/23/24 07:33 12/23/24 07:30 12/23/24 07:30 12/23/24 07:30 12/23/24 07:24 12/23/24 07:15 12/23/24 07:15 12/23/24 07:15 12/23/24 07:15 12/23/24 07:15 12/23/24 07:09 12/23/24 07:00 12/23/24 06:54 12/23/24 06:48 12/23/24 06:45 12/23/24 06:45 12/23/24 06:45 12/23/24 06:39 12/23/24 06:30 12/23/24 06:30 12/23/24 06:30 4 12/23/24 06:24 12/23/24 06:21 12/23/24 06:15 5 12/23/24 06:15 12/23/24 06:00 12/23/24 05:51 5 12/23/24 05:45 12/23/24 05:45 12/23/24 05:45 12/23/24 05:33 5 12/23/24 05:30 12/23/24 05:18 5 12/23/24 05:15 12/23/24 05:00 5 12/23/24 05:00 12/23/24 05:00 12/23/24 05:00 12/23/24 04:54 12/23/24 04:42 12/23/24 04:36 12/23/24 04:31 12/23/24 04:31 12/23/24 04:31 5 12/23/24 04:18 12/23/24 04:15 12/23/24 04:15 5 12/23/24 04:12 5 12/23/24 03:49 5 12/23/24 03:42 12/23/24 03:21 5 12/23/24 03:15 12/23/24 03:03 5 12/23/24 03:00 5 12/23/24 03:00 12/23/24 03:00 12/23/24 02:57 12/23/24 02:45 12/23/24 02:45 12/23/24 02:45 12/23/24 02:45 12/23/24 02:45 12/23/24 02:30 5 12/23/24 02:30 Laboratory Results 12/23/24 04:44 12/23/24 04:44 PG Care Time/CCT Total # of Minutes Spent Total Time Spent with Patient: Total time spent is greater than 50% in coordination of care (as documented) at patient's floor/unit and/or counseling patient: Coding Level of Care Code 27994 SUB INP/OBS CARE 3/50MIN Diagnoses Cardiogenic shock R57.0 Acute non-ST elevation myocardial infarction (NSTEMI) I21.4 Pneumonia J18.9 Laterality: unspecified laterality Lung location: unspecified part of lung Pneumonia type: due to unspecified organism Acute respiratory failure with hypoxia J96.01 Influenza A virus subtype H1 2009 pandemic strain present J10.1 Lung cancer metastatic to brain C34.90; C79.31 (3) Pneumonia Laterality: unspecified laterality Lung location: unspecified part of lung P neumonia type: due to unspecified organism Qualified Code(s): J18.9 - Pneumonia, unspecified organism
[2024-12-23] MEDS: HYDROCORTISONE SOD 50 MG in SYRINGE 0 ML IV SCH (15:00)
[2024-12-23] MEDS ORDERED: GLUCAGON FOR INJ 1 MG VIAL SQ PRN (18:24)
[2024-12-23] MEDS: FENOFIBRATE NANOCRYSTALLIZED 145 MG TABLET PO SCH (20:26)
[2024-12-23] MEDS ORDERED: OSELTAMIVIR PHOSPHATE SUSP 30 MG/5 ML UDP PO SCH (21:00)
[2024-12-23] MEDS: guaiFENesin/CODEINE 100MG/10MG 5ML UDC PO PRN (21:07)
[2024-12-24 05:45] LABS: Hematocrit (blood only) 33.1 % (37.0-47.0); Hemoglobin 10.8 g/dl (12.0-16.0); Mean Corpuscular Hemoglobin 31.6 pg (25.0-34.0); Mean Corpuscular Hgb Conc 32.6 g/dL (32.0-36.0); Mean Corpuscular Volume 96.8 fL (80.0-100.0); Mean Platelet Volume 9.6 fL (9.4-12.4); Platelet Count 160 K/uL (130-400); RDW Coefficient of Variation 13.6 % (11.5-14.5); RDW Standard Deviation 49.1 fL (36.4-46.3); Red Blood Count 3.42 M/uL (4.20-5.40); White Blood Count 10.02 K/ul (4.8-10.8)
[2024-12-24 06:06] LABS: Partial Thromboplastin Time 27 Seconds (21-31)
[2024-12-24 06:19] LABS: Albumin Globulin Ratio 0.9 (0.9-2); Albumin Level 2.9 gm/dl (3.4-5.0); BUN Creatinine Ratio 32.4 (10-20); Bilirubin Direct 0.1 mg/dl (0-0.2); Bilirubin,Total 0.4 mg/dl (0.2-1.0); Calcium 8.8 mg/dl (8.6-10.3); Creatinine Clr Calc Pharmacy 70.5 ml/min; Globulin 3.4 gm/dl (2.5-4.0); Magnesium 2.2 mg/dl (1.7-2.4); Potassium 4.1 mmol/L (3.5-5.1); Total Protein 6.3 gm/dl (6.0-8.3)
[2024-12-24 06:23] LABS: Basophils # (auto) 0.01 K/uL (0.00-0.20); Basophils % (auto) 0.1 %; Eosinophils # (auto) 0.01 K/uL (0.00-0.50); Eosinophils % (auto) 0.1 %; Immature Granulocytes # (auto) 0.12 K/uL (0.01-0.20); Immature Granulocytes % (auto) 1.2 %; Lymphocytes # (auto) 0.21 K/uL (1.20-3.40); Lymphocytes % (auto) 2.1 %; Monocytes # (auto) 0.39 K/uL (0.11-0.59); Monocytes % (auto) 3.9 %; Neutrophils # (auto) 9.28 K/uL (1.40-6.50); Neutrophils % (auto) 92.6 %; Polychromasia 1+
--- NOTE | 2024-12-24 09:47 | Electrocardiogram Report ---
Test Reason : Blood Pressure : */* mmHG Vent. Rate : 71 BPM Atrial Rate : 71 BPM P-R Int : 132 ms QRS Dur : 80 ms QT Int : 396 ms P-R-T Axes : 63 16 16 degrees QTcB Int : 430 ms Normal sinus rhythm Possible Left atrial enlargement Borderline ECG When compared with ECG of 23-Dec-2024 05:05, (unconfirmed) No significant change was found Confirmed by Ken Abebe ([id number]) on 12/24/2024 9:47:42 AM Referred By: REFERRED SELF Confirmed By: Ken Abebe
--- NOTE | 2024-12-24 09:49 | Electrocardiogram Report ---
Test Reason : Blood Pressure : */* mmHG Vent. Rate : 93 BPM Atrial Rate : 93 BPM P-R Int : 138 ms QRS Dur : 66 ms QT Int : 338 ms P-R-T Axes : 68 38 71 degrees QTcB Int : 420 ms Normal sinus rhythm Left atrial enlargement Poor R wave progression, consider anterior ME vs. lead placement vs. LVH Abnormal ECG When compared with ECG of 11-Dec-2024 12:15, No significant change was found Confirmed by Ken Abebe ([id number]) on 12/24/2024 9:48:59 AM Referred By: Confirmed By: Ken Abebe
--- NOTE | 2024-12-24 09:49 | Electrocardiogram Report ---
Test Reason : Blood Pressure : */* mmHG Vent. Rate : 70 BPM Atrial Rate : 70 BPM P-R Int : 134 ms QRS Dur : 80 ms QT Int : 406 ms P-R-T Axes : 63 24 26 degrees QTcB Int : 438 ms Normal sinus rhythm Normal ECG When compared with ECG of 22-Dec-2024 20:03, (unconfirmed) No significant change was found Confirmed by Ken Abebe ([id number]) on 12/24/2024 9:48:34 AM Referred By: REFERRED SELF Confirmed By: Ken Abebe
--- NOTE | 2024-12-24 10:10 | Hospitalist Progress Note ---
Date of Service December 24, 2024 Assessment & Plan (1) Cardiogenic shock: Plan: This rather appears to be septic shock on admission. Now resolved. She is off pressor support (2) Acute non-ST elevation myocardial infarction (NSTEMI): Plan: Ruled out. Normal left ventricle with no regional wall motion abnormality seen on echo. Cardiology consultation appreciated (3) Pneumonia: Plan: Suspected bilateral pneumonia. Possibly obstructive in nature from her underlying lung cancer. Continue intravenous Zosyn, day 3. (4) Acute respiratory failure with hypoxia: Plan: Supplemental oxygen per nasal cannula to maintain saturation greater than 90%. Wean off as tolerated (5) Influenza A virus subtype H1 2009 pandemic strain present: Plan: Supportive care. Tamiflu for 5 days (6) Lung cancer metastatic to brain: Plan: Known left lower lobe malignancy with metastatic disease involving the brain. Supportive care (7) Hypophosphatemia: Plan: Parenteral replacement. Serial labs Plan To be determined. OT and PT assessments requested Admission and Anticipated Discharge Date Admission Date: December 22, 2024 Subjective Alert and oriented this morning. No apparent distress. Multiple family members are at the bedside. We discussed CODE STATUS and the family will discuss this and make a decision. She continues on 5 L of oxygen per nasal cannula. Phosphorus is low and will be replaced parenterally. She remains on intravenous Zosyn, day 3. OT and PT assessments have been requested. Review of Systems 2 Review of Systems: Constitutionalno fever or chills ENTno blurred vision, no double vision, no epistaxis, no sore throat Respiratoryproductive cough. Shortness of breath. No wheezing Cardiacno palpitations, no chest pain, no syncope Jarrell nausea, vomiting, diarrhea, melena, hematochezia GUno urinary retention, no urinary incontinence, no dysuria, no hematuria Musculoskeletalno joint pain, no muscle tenderness Skinno bruising, no rashes, no pruritus Neurono isolated weakness, no paresthesia, no weakness Psychno depression, no anxiety Physical Exam 2 Physical Exam: General-alert and oriented x3, no fever, no chills HEENT-head atraumatic and normocephalic, pupils equal and reactive to light, extraocular muscles intact Neck-no lymphadenopathy or thyromegaly, trachea midline Chest-bilateral rhonchi. No inspiratory rales. No wheezing Cardiac-regular rate and rhythm, normal S1 and S2 Abdomen-normal bowel sounds, no hepatosplenomegaly Extremities-no cyanosis, clubbing, or edema Neuro-cranial nerves II through XII intact, motor and sensory function within normal limits, strength symmetrical with generalized weakness, no focal deficits Psych-normal affect, normal mood Results & Data Results & Data Vital Signs (Past 12 Hours) Vital Signs Temp Pulse Pulse Resp BP BP Pulse Ox 12/24/24 08:00 73 12/24/24 07:38 12/24/24 07:00 36.7 C 70 18 94 12/24/24 06:00 36.7 C 73 18 93 12/24/24 05:35 112/68 12/24/24 05:35 112/68 12/24/24 05:27 36.7 C 71 17 93 12/24/24 05:00 36.7 C 70 27 H 93 12/24/24 04:12 36.6 C 74 20 93 12/24/24 03:15 117/66 12/24/24 03:15 36.6 C 74 18 117/66 92 12/24/24 03:12 36.6 C 76 18 93 12/24/24 03:06 36.6 C 75 19 94 12/24/24 02:03 36.3 C L 73 21 92 12/24/24 01:00 36.8 C 76 23 94 12/24/24 00:52 36.5 C 76 20 102/65 94 12/24/24 00:43 102/65 12/24/24 00:43 102/65 12/24/24 00:36 35.5 C L 78 19 96 12/24/24 00:06 31.0 C L 76 21 95 12/23/24 23:57 72 12/23/24 23:03 35.6 C L 73 21 94 12/23/24 22:43 36.8 C 75 18 110/67 94 O2 Del Method O2 Flow Rate 12/24/24 08:00 12/24/24 07:38 Nasal Cannula 5 12/24/24 07:00 12/24/24 06:00 12/24/24 05:35 12/24/24 05:35 12/24/24 05:27 12/24/24 05:00 12/24/24 04:12 12/24/24 03:15 12/24/24 03:15 Nasal Cannula 4 12/24/24 03:12 12/24/24 03:06 12/24/24 02:03 12/24/24 01:00 12/24/24 00:52 Nasal Cannula 5 12/24/24 00:43 12/24/24 00:43 12/24/24 00:36 12/24/24 00:06 12/23/24 23:57 12/23/24 23:03 12/23/24 22:43 Nasal Cannula 6 Laboratory Results 12/24/24 05:19 12/24/24 05:19 PG Care Time/CCT Total # of Minutes Spent Total Time Spent with Patient: Total time spent is greater than 50% in coordination of care (as documented) at patient's floor/unit and/or counseling patient: Coding Level of Care Code 08396 SUB INP/OBS CARE 3/50MIN Diagnoses Cardiogenic shock R57.0 Acute non-ST elevation myocardial infarction (NSTEMI) I21.4 Pneumonia J18.9 Laterality: unspecified laterality Lung location: unspecified part of lung Pneumonia type: due to unspecified organism Acute respiratory failure with hypoxia J96.01 Influenza A virus subtype H1 2009 pandemic strain present J10.1 Lung cancer metastatic to brain C34.90; C79.31 Hypophosphatemia E83.39 (3) Pneumonia Laterality: unspecified laterality Lung location: unspecified part of lung P neumonia type: due to unspecified organism Qualified Code(s): J18.9 - Pneumonia, unspecified organism
[2024-12-24] MEDS ORDERED: SODIUM PHOSPHATE 3 MMOL/1 ML INFUSION IV STA (10:14)
[2024-12-24] MEDS: POT PHOSPHATE MONOBASIC W/ SOD TAB PO SCH (11:09)
[2024-12-24] MEDS: ACETAMINOPHEN 325 MG TAB PO PRN (15:04)
[2024-12-25] MEDS: POLYETHYLENE (MIRALAX) 17 GM PACK PO PRN (06:15)
[2024-12-25] MEDS: LEVOTHYROXINE SODIUM 50 MCG TABLET PO SCH (06:15)
--- NOTE | 2024-12-25 07:23 | Hospitalist Progress Note ---
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 #Acute hypoxic resp therapy - in the setting of COPD and metastatic lung cancer, + for influ A also - improved - tamiflu for 5 days (day 3 today) - Suspected bilateral pneumonia. Possibly obstructive in nature from her underlying lung cancer. Continue intravenous Zosyn, day 4 - chronic steroid/dexamethasone use; per pulm stress dose hydrocortisone 50 mg q6h #DVT - noted on US done several days ago; report states "Distal right popliteal vein shows internal echogenic content with no flow suggesting thrombosis, DVT should be considered" - pending oncology recs but suspect need for full anticoagulation given active cancer dx #Hypotension; resolved - on admission, most likely septic shock/due to illness - off pressor support at this time and doing well #NSTEMI -on admission with trop 2287 -> peak 2969 then downtrended - echo was normal left ventricular systolic function and without wall motion abnormality - cardiology consulted; suspect demand ischemia due to hypotension/shock on admission Dispo: OT and PT assessments pending Admission and Anticipated Discharge Date Admission Date: December 22, 2024 Supervising Physician Co-Signing Physician Notes I personally examined the patient and verified all marcelino points of history and exam, discussed case, and agree with decision making with Dr Rogers feeling better breathing at rest without much trouble still significant TYLER however vitals noted nad heent nc at mmm breathingu nlabored no accessory muscles good effort skin no rashes no pallor or icterus flu, hypoxia, probably secondary bacterial pneumonia - slowly improving. continue current care; although doubt needs broad gram negative coverage w abx - narrowed to augmentin DVT - start anticoagulation (was on proph dosing) dispo - home vs rehab depending on progress otherwise as above Subjective Pt seen at bedside this morning. She states that she overall feels much better than she did when she came into the hospital. She still notes some coughing fits and some anterior chest pain only when coughing but otherwise no shortness of breath and feels well. No nausea or vomiting. She does note she has not had a BM yet this admission but states she took some Metamucil this morning and would not like anything further at this time. No further complaints this morning. Review of Systems Review of Systems: Per HPI. Physical Exam Physical Exam: General:Alert and oriented, no acute distress, HEENT: Normocephalic, moist oral mucosa, Cardio: Regular rate and rhythm, Resp:Some faint rhonchi noted throughout middle/low lung headley bilaterally, no wheezes GI: Soft and nontender, nondistended, bowel sounds active Skin: Warm, pink, dry, Results & Data Results & Data Vital Signs (Past 12 Hours) Vital Signs Temp Pulse Pulse Resp BP Pulse Ox O2 Del Method 12/25/24 06:39 64 12/25/24 03:33 36.5 C 70 16 129/76 93 Nasal Cannula 12/25/24 03:02 36.4 C L 70 18 123/82 94 High Flow Nasal Cannula 12/24/24 22:27 36.6 C 67 18 110/64 94 Nasal Cannula 12/24/24 21:58 69 12/24/24 19:50 High Flow Nasal Cannula 12/24/24 19:47 36.5 C 75 18 110/68 92 Nasal Cannula 12/24/24 19:40 74 O2 Flow Rate 12/25/24 06:39 12/25/24 03:33 5 12/25/24 03:02 5 12/24/24 22:27 5 12/24/24 21:58 12/24/24 19:50 5 12/24/24 19:47 5 12/24/24 19:40 Resident Activity Tracking Resident Involvement: Resident Care Provided Care Provided: Adult Hospital Medicine
[2024-12-25 07:29] LABS: Hematocrit (blood only) 36.5 % (37.0-47.0); Hemoglobin 11.8 g/dl (12.0-16.0); Mean Corpuscular Hemoglobin 30.8 pg (25.0-34.0); Mean Corpuscular Hgb Conc 32.3 g/dL (32.0-36.0); Mean Corpuscular Volume 95.3 fL (80.0-100.0); Mean Platelet Volume 9.7 fL (9.4-12.4); Platelet Count 157 K/uL (130-400); RDW Coefficient of Variation 13.6 % (11.5-14.5); RDW Standard Deviation 48.1 fL (36.4-46.3); Red Blood Count 3.83 M/uL (4.20-5.40); White Blood Count 7.93 K/ul (4.8-10.8)
[2024-12-25 07:34] LABS: BUN Creatinine Ratio 32.3 (10-20); Creatinine Clr Calc Pharmacy 73.8 ml/min; Phosphorus 2.5 mg/dl (2.5-4.9); Potassium 3.9 mmol/L (3.5-5.1)
[2024-12-25 08:06] LABS: Immature Granulocytes # (auto) 0.11 K/uL (0.01-0.20); Immature Granulocytes % (auto) 1.4 %; Lymphocytes % (auto) 3.8 %; Monocytes # (auto) 0.35 K/uL (0.11-0.59); Monocytes % (auto) 4.4 %; Neutrophils # (auto) 7.17 K/uL (1.40-6.50); Neutrophils % (auto) 90.4 %; Ovalocytes 1+; Polychromasia 1+
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
--- NOTE | 2024-12-25 17:35 | Billing Data ---
Date of Service December 25, 2024 Coding Level of Care Code 69163 SUB INP/OBS CARE MIN
[2024-12-25] MEDS: AMOXICILLIN/CLAVULANATE 875 MG TAB PO SCH (20:49)
[2024-12-25] MEDS: ENOXAPARIN 80 MG/0.8 ML SYR SQ SCH (20:50)
[2024-12-25] MEDS ORDERED: ENOXAPARIN 1 MG/KG SQ SCH (21:00)
[2024-12-25] MEDS: OSELTAMIVIR PHOSPHATE 75 MG CAP PO SCH (21:09)
--- NOTE | 2024-12-26 06:49 | Hospitalist Progress Note ---
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 #Acute hypoxic resp therapy - in the setting of COPD and metastatic lung cancer, + for influ A also - improved - tamiflu for 5 days (day 4 today) - Suspected bilateral pneumonia. Possibly obstructive in nature from her underlying lung cancer. Zosyn transitioned to augmentin 12/25. - chronic steroid/dexamethasone use; per pulm stress dose hydrocortisone 50 mg q6h #DVT - noted on US done several days ago; report states "Distal right popliteal vein shows internal echogenic content with no flow suggesting thrombosis, DVT should be considered" - pt now on full anticoagulation lovenox, possible to switch to eliquis on discharge #Hypotension; resolved - on admission, most likely septic shock/due to illness - off pressor support at this time and doing well #NSTEMI -on admission with trop 2287 -> peak 2969 then downtrended - echo was normal left ventricular systolic function and without wall motion abnormality - cardiology consulted; suspect demand ischemia due to hypotension/shock on admission Dispo: to discuss options with palliative today as she is the caregiver for her and they may both need placement as she now requires much more support than prior to admission Admission and Anticipated Discharge Date Admission Date: December 22, 2024 Supervising Physician Co-Signing Physician Notes I personally examined the patient and verified all marcelino points of history and exam, discussed case, and agree with decision making with Dr Rogers no new complaints, no new problems. dc planning with palliative/family vitals noted nad heent nc at mmm breathing unlabored no accessory muscles good effort skin no rashes no pallor or icterus flu, hypoxia, probably secondary bacterial pneumonia - slowly improving. continue current care; although doubt needs broad gram negative coverage w abx - narrowed to augmentin, doing well DVT - anticoagulate dispo - home vs rehab depending on progress/dispo planning/palliative input otherwise as above Subjective Pt seen at bedside this morning while she was sitting up having breakfast. No nausea or vomiting. She states her breathing feels about the same and she feels okay at baseline when resting but does getting significantly SOB when walking around or also with doing things like eating. Otherwise she is doing about the same as yesterday. No questions or concerns. She did have a bowel movement yesterday and again this morning. Review of Systems Review of Systems: Per HPI. Physical Exam Physical Exam: General:Alert and oriented, no acute distress, HEENT: Normocephalic, moist oral mucosa, Cardio: Regular rate and rhythm, Resp:Some faint rhonchi noted throughout middle/low lung headley bilaterally with maybe slight improvement from yesterday, no wheezes Skin: Warm, pink, dry, Results & Data Results & Data Vital Signs (Past 12 Hours) Vital Signs Temp Pulse Pulse Resp BP Pulse Ox O2 Del Method 12/26/24 02:57 36.6 C 70 18 142/78 H 93 Nasal Cannula 12/25/24 23:07 36.8 C 75 18 142/85 H 94 Nasal Cannula 12/25/24 22:16 High Flow Nasal Cannula 12/25/24 21:58 73 12/25/24 19:36 36.7 C 83 18 139/82 93 Nasal Cannula O2 Flow Rate 12/26/24 02:57 12/25/24 23:07 12/25/24 22:16 5 12/25/24 21:58 12/25/24 19:36 Resident Activity Tracking Resident Involvement: Resident Care Provided Care Provided: Adult Hospital Medicine
[2024-12-26 08:06] LABS: BUN Creatinine Ratio 35.2 (10-20); Calcium 8.5 mg/dl (8.6-10.3); Creatinine Clr Calc Pharmacy 88.8 ml/min; Potassium 3.6 mmol/L (3.5-5.1)
--- NOTE | 2024-12-26 12:46 | Billing Data ---
Date of Service December 26, 2024 Coding Level of Care Code 55900 SUB INP/OBS CARE
--- NOTE | 2024-12-26 13:11 | Palliative Care Consultation ---
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 mmol/L POC Potassium (3.3-5.0) mmol/L Potassium (3.5-5.1) mmol/L POC Chloride (101-112) mmol/L Chloride (98-107) mmol/L Carbon Dioxide (21-32) mmol/L POC Total CO2 (24-31) mmol/L Anion Gap (3-11) POC Anion Gap (16-25) mmol/L POC BUN (7-18) mg/dl BUN (6-23) mg/dl Creatinine (0.6-1.2) mg/dl POC Creatinine (0.6-1.3) mg/dl Est Cr Clr Drug Dosing ml/min eGFR BUN/Creatinine Ratio (10-20) Glucose (70-99(Fasting)) mg/dl POC Glucose 135 H 124 H 134 H (70-99) mg/dl POC Glucose (other) (70-99) mg/dl Lactate (0.4-2.0) mmol/L Calcium (8.6-10.3) mg/dl POC Ioniz Calcium Felisha (1.12-1.32) mmol/l Phosphorus (2.5-4.9) mg/dl Magnesium (1.7-2.4) mg/dl Total Bilirubin (0.2-1.0) mg/dl Direct Bilirubin AST (13-39) U/L ALT (7-52) U/L Alkaline Phosphatase (34-104) U/L Troponin I High Sens (0-14) pg/ml B-Natriuretic Peptide (0-100) pg/ml Total Protein (6.0-8.3) gm/dl Albumin (3.4-5.0) gm/dl Globulin (2.5-4.0) gm/dl Albumin/Globulin Ratio (0.9-2) Procalcitonin (0-0.5) ng/ml Urine Color Urine Appearance (Clear) Urine pH (4.5-7.5) Ur Specific [place] (1.000-1.030) Urine Protein (Negative) Urine Glucose (UA) (Negative) Urine Ketones (Negative) Urine Blood (Negative) Urine Nitrite (Negative) Urine Bilirubin (Negative) Urine Urobilinogen (Negative) Ur Leukocyte Esterase (Negative) Urine WBC (Auto) (0-5) /hpf Urine RBC (Auto) (0-2) /hpf U Hyaline Cast (Auto) (0-2) /lpf U Epithel Cells (Auto) (0-2) /hpf Urine Bacteria (Auto) (None Seen) Granular Casts (None Prsent) /lpf Nasal Influ A H1 2008 PCR (NotDetected) Nasal Screen MRSA (PCR) (Negative) Adenovirus (PCR) (NotDetected) B. pertussis DNA (PCR) (NotDetected) B.parapertussis DNA PCR (NotDetected) C. pneumoniae DNA (PCR) (NotDetected) Coronavirus OC43 (PCR) (NotDetected) Coronavirus HKU1 (PCR) (NotDetected) Coronavirus 229E (PCR) (NotDetected) SARS-CoV-2 (PCR) (NotDetected) Coronavirus NL63 (PCR) (NotDetected) Human Metapneumovir PCR (NotDetected) Influenza Type B (PCR) (NotDetected) Urine Legionella Ag M. pneumoniae (PCR) (NotDetected) Parainfluenza 1 (PCR) (NotDetected) Parainfluenza 2 (PCR) (NotDetected) Parainfluenza 3 (PCR) (NotDetected) Parainfluenza 4 (PCR) (NotDetected) RSV (PCR) (NotDetected) Entero/Rhino (PCR) (NotDetected) 12/24/24 12/23/24 12/23/24 Range/Units 05:19 20:18 19:30 WBC 10.02 (4.8-10.8) K/ul RBC 3.42 L (4.20-5.40) M/uL Hgb 10.8 L (12.0-16.0) g/dl POC Hgb (12.0-16.0) g/dl Hct 33.1 L (37.0-47.0) % POC Hct (37-47) % MCV 96.8 (80.0-100.0) fL MCH 31.6 (25.0-34.0) pg MCHC 32.6 (32.0-36.0) g/dL RDW Std Deviation 49.1 H (36.4-46.3) fL RDW Coeff of Danika 13.6 (11.5-14.5) % Plt Count 160 (130-400) K/uL MPV 9.6 (9.4-12.4) fL Immature Gran % (Auto) 1.2 % Neut % (Auto) 92.6 % Lymph % (Auto) 2.1 % [place] % (Auto) 3.9 % Eos % (Auto) 0.1 % Baso % (Auto) 0.1 % Neut # (Auto) 9.28 H (1.40-6.50) K/uL Lymph # (Auto) 0.21 L (1.20-3.40) K/uL [place] # (Auto) 0.39 (0.11-0.59) K/uL Eos # (Auto) 0.01 (0.00-0.50) K/uL Baso # (Auto) 0.01 (0.00-0.20) K/uL Immature Gran # (Auto) 0.12 (0.01-0.20) K/uL RBC Morphology Polychromasia 1+ Ovalocytes PT (9.0-12.0) Seconds INR (0.9-1.1) APTT 27 (21-31) Seconds PTT Ratio 1.0 VBG pH (7.36-7.41) VBG pCO2 (38-50) mmHg VBG pO2 mmHg VBG HCO3 mmol/L VBG O2 Saturation % VBG Base Excess mEq/L POC Sodium (135-144) mmol/L Sodium 139 (136-145) mmol/L POC Potassium (3.3-5.0) mmol/L Potassium 4.1 (3.5-5.1) mmol/L POC Chloride (101-112) mmol/L Chloride 100 (98-107) mmol/L Carbon Dioxide 35 H (21-32) mmol/L POC Total CO2 (24-31) mmol/L Anion Gap 4 (3-11) POC Anion Gap (16-25) mmol/L POC BUN (7-18) mg/dl BUN 22 (6-23) mg/dl Creatinine 0.68 (0.6-1.2) mg/dl POC Creatinine (0.6-1.3) mg/dl Est Cr Clr Drug Dosing 70.5 ml/min eGFR 92.48 BUN/Creatinine Ratio 32.4 H (10-20) Glucose 142 H (70-99(Fasting)) mg/dl POC Glucose 114 H (70-99) mg/dl POC Glucose (other) (70-99) mg/dl Lactate (0.4-2.0) mmol/L Calcium 8.8 (8.6-10.3) mg/dl POC Ioniz Calcium Felisha (1.12-1.32) mmol/l Phosphorus 2.0 L D (2.5-4.9) mg/dl Magnesium 2.2 (1.7-2.4) mg/dl Total Bilirubin 0.4 (0.2-1.0) mg/dl Direct Bilirubin 0.1 AST 89 H (13-39) U/L ALT 41 (7-52) U/L Alkaline Phosphatase 49 (34-104) U/L Troponin I High Sens (0-14) pg/ml B-Natriuretic Peptide (0-100) pg/ml Total Protein 6.3 (6.0-8.3) gm/dl Albumin 2.9 L (3.4-5.0) gm/dl Globulin 3.4 (2.5-4.0) gm/dl Albumin/Globulin Ratio 0.9 (0.9-2) Procalcitonin (0-0.5) ng/ml Urine Color Urine Appearance (Clear) Urine pH (4.5-7.5) Ur Specific [place] (1.000-1.030) Urine Protein (Negative) Urine Glucose (UA) (Negative) Urine Ketones (Negative) Urine Blood (Negative) Urine Nitrite (Negative) Urine Bilirubin (Negative) Urine Urobilinogen (Negative) Ur Leukocyte Esterase (Negative) Urine WBC (Auto) (0-5) /hpf Urine RBC (Auto) (0-2) /hpf U Hyaline Cast (Auto) (0-2) /lpf U Epithel Cells (Auto) (0-2) /hpf Urine Bacteria (Auto) (None Seen) Granular Casts (None Prsent) /lpf Nasal Influ A H1 2009 PCR (NotDetected) Nasal Screen MRSA (PCR) (Negative) Adenovirus (PCR) (NotDetected) B. pertussis DNA (PCR) (NotDetected) B.parapertussis DNA PCR (NotDetected) C. pneumoniae DNA (PCR) (NotDetected) Coronavirus OC43 (PCR) (NotDetected) Coronavirus HKU1 (PCR) (NotDetected) Coronavirus 229E (PCR) (NotDetected) SARS-CoV-2 (PCR) (NotDetected) Coronavirus NL63 (PCR) (NotDetected) Human Metapneumovir PCR (NotDetected) Influenza Type B (PCR) (NotDetected) Urine Legionella Ag Pending M. pneumoniae (PCR) (NotDetected) Parainfluenza 1 (PCR) (NotDetected) Parainfluenza 2 (PCR) (NotDetected) Parainfluenza 3 (PCR) (NotDetected) Parainfluenza 4 (PCR) (NotDetected) RSV (PCR) (NotDetected) Entero/Rhino (PCR) (NotDetected) 12/23/24 12/23/24 12/23/24 Range/Units 17:27 15:54 11:58 WBC (4.8-10.8) K/ul RBC (4.20-5.40) M/uL Hgb (12.0-16.0) g/dl POC Hgb (12.0-16.0) g/dl Hct (37.0-47.0) % POC Hct (37-47) % MCV (80.0-100.0) fL MCH (25.0-34.0) pg MCHC (32.0-36.0) g/dL RDW Std Deviation (36.4-46.3) fL RDW Coeff of Dnaika (11.5-14.5) % Plt Count (130-400) K/uL MPV (9.4-12.4) fL Immature Gran % (Auto) % Neut % (Auto) % Lymph % (Auto) % [place] % (Auto) % Eos % (Auto) % Baso % (Auto) % Neut # (Auto) (1.40-6.50) K/uL Lymph # (Auto) (1.20-3.40) K/uL [place] # (Auto) (0.11-0.59) K/uL Eos # (Auto) (0.00-0.50) K/uL Baso # (Auto) (0.00-0.20) K/uL Immature Gran # (Auto) (0.01-0.20) K/uL RBC Morphology Polychromasia Ovalocytes PT (9.0-12.0) Seconds INR (0.9-1.1) APTT (21-31) Seconds PTT Ratio VBG pH (7.36-7.41) VBG pCO2 (38-50) mmHg VBG pO2 mmHg VBG HCO3 mmol/L VBG O2 Saturation % VBG Base Excess mEq/L POC Sodium (135-144) mmol/L Sodium (136-145) mmol/L POC Potassium (3.3-5.0) mmol/L Potassium (3.5-5.1) mmol/L POC Chloride (101-112) mmol/L Chloride (98-107) mmol/L Carbon Dioxide (21-32) mmol/L POC Total CO2 (24-31) mmol/L Anion Gap (3-11) POC Anion Gap (16-25) mmol/L POC BUN (7-18) mg/dl BUN (6-23) mg/dl Creatinine (0.6-1.2) mg/dl POC Creatinine (0.6-1.3) mg/dl Est Cr Clr Drug Dosing ml/min eGFR BUN/Creatinine Ratio (10-20) Glucose (70-99(Fasting)) mg/dl POC Glucose 154 H 128 H (70-99) mg/dl POC Glucose (other) (70-99) mg/dl Lactate (0.4-2.0) mmol/L Calcium (8.6-10.3) mg/dl POC Ioniz Calcium Felisha (1.12-1.32) mmol/l Phosphorus (2.5-4.9) mg/dl Magnesium (1.7-2.4) mg/dl Total Bilirubin (0.2-1.0) mg/dl Direct Bilirubin AST (13-39) U/L ALT (7-52) U/L Alkaline Phosphatase (34-104) U/L Troponin I High Sens 1861.7 H* (0-14) pg/ml B-Natriuretic Peptide (0-100) pg/ml Total Protein (6.0-8.3) gm/dl Albumin (3.4-5.0) gm/dl Globulin (2.5-4.0) gm/dl Albumin/Globulin Ratio (0.9-2) Procalcitonin (0-0.5) ng/ml Urine Color Urine Appearance (Clear) Urine pH (4.5-7.5) Ur Specific [place] (1.000-1.030) Urine Protein (Negative) Urine Glucose (UA) (Negative) Urine Ketones (Negative) Urine Blood (Negative) Urine Nitrite (Negative) Urine Bilirubin (Negative) Urine Urobilinogen (Negative) Ur Leukocyte Esterase (Negative) Urine WBC (Auto) (0-5) /hpf Urine RBC (Auto) (0-2) /hpf U Hyaline Cast (Auto) (0-2) /lpf U Epithel Cells (Auto) (0-2) /hpf Urine Bacteria (Auto) (None Seen) Granular Casts (None Prsent) /lpf Nasal Influ A H1 2009 PCR (NotDetected) Nasal Screen MRSA (PCR) (Negative) Adenovirus (PCR) (NotDetected) B. pertussis DNA (PCR) (NotDetected) B.parapertussis DNA PCR (NotDetected) C. pneumoniae DNA (PCR) (NotDetected) Coronavirus OC43 (PCR) (NotDetected) Coronavirus HKU1 (PCR) (NotDetected) Coronavirus 229E (PCR) (NotDetected) SARS-CoV-2 (PCR) (NotDetected) Coronavirus NL63 (PCR) (NotDetected) Human Metapneumovir PCR (NotDetected) Influenza Type B (PCR) (NotDetected) Urine Legionella Ag M. pneumoniae (PCR) (NotDetected) Parainfluenza 1 (PCR) (NotDetected) Parainfluenza 2 (PCR) (NotDetected) Parainfluenza 3 (PCR) (NotDetected) Parainfluenza 4 (PCR) (NotDetected) RSV (PCR) (NotDetected) Entero/Rhino (PCR) (NotDetected) 12/23/24 12/23/24 12/23/24 Range/Units 10:49 05:30 04:44 WBC 9.48 (4.8-10.8) K/ul RBC 3.55 L (4.20-5.40) M/uL Hgb 11.2 L (12.0-16.0) g/dl POC Hgb (12.0-16.0) g/dl Hct 34.6 L (37.0-47.0) % POC Hct (37-47) % MCV 97.5 (80.0-100.0) fL MCH 31.5 (25.0-34.0) pg MCHC 32.4 (32.0-36.0) g/dL RDW Std Deviation 49.4 H (36.4-46.3) fL RDW Coeff of Danika 13.7 (11.5-14.5) % Plt Count 198 (130-400) K/uL MPV 9.1 L (9.4-12.4) fL Immature Gran % (Auto) 1.3 % Neut % (Auto) 92.8 % Lymph % (Auto) 3.0 % [place] % (Auto) 2.8 % Eos % (Auto) 0.0 % Baso % (Auto) 0.1 % Neut # (Auto) 8.80 H (1.40-6.50) K/uL Lymph # (Auto) 0.28 L (1.20-3.40) K/uL [place] # (Auto) 0.27 (0.11-0.59) K/uL Eos # (Auto) 0.00 (0.00-0.50) K/uL Baso # (Auto) 0.01 (0.00-0.20) K/uL Immature Gran # (Auto) 0.12 (0.01-0.20) K/uL RBC Morphology Unremarkable Polychromasia Ovalocytes PT (9.0-12.0) Seconds INR (0.9-1.1) APTT 28 (21-31) Seconds PTT Ratio 1.0 VBG pH (7.36-7.41) VBG pCO2 (38-50) mmHg VBG pO2 mmHg VBG HCO3 mmol/L VBG O2 Saturation % VBG Base Excess mEq/L POC Sodium (135-144) mmol/L Sodium 140 (136-145) mmol/L POC Potassium (3.3-5.0) mmol/L Potassium 4.0 (3.5-5.1) mmol/L POC Chloride (101-112) mmol/L Chloride 102 (98-107) mmol/L Carbon Dioxide 31 (21-32) mmol/L POC Total CO2 (24-31) mmol/L Anion Gap 7 (3-11) POC Anion Gap (16-25) mmol/L POC BUN (7-18) mg/dl BUN 27 H (6-23) mg/dl Creatinine 0.89 (0.6-1.2) mg/dl POC Creatinine (0.6-1.3) mg/dl Est Cr Clr Drug Dosing 53.7 ml/min eGFR 68.84 BUN/Creatinine Ratio 30.3 H (10-20) Glucose 197 H (70-99(Fasting)) mg/dl POC Glucose 181 H (70-99) mg/dl POC Glucose (other) (70-99) mg/dl Lactate (0.4-2.0) mmol/L Calcium 8.8 (8.6-10.3) mg/dl POC Ioniz Calcium Felisha (1.12-1.32) mmol/l Phosphorus 3.2 (2.5-4.9) mg/dl Magnesium 1.7 (1.7-2.4) mg/dl Total Bilirubin 0.4 (0.2-1.0) mg/dl Direct Bilirubin AST 99 H (13-39) U/L ALT 41 (7-52) U/L Alkaline Phosphatase 47 (34-104) U/L Troponin I High Sens 2023.8 H* D 1389.1 H* D (0-14) pg/ml B-Natriuretic Peptide (0-100) pg/ml Total Protein 6.5 (6.0-8.3) gm/dl Albumin 3.0 L (3.4-5.0) gm/dl Globulin 3.5 (2.5-4.0) gm/dl Albumin/Globulin Ratio 0.9 (0.9-2) Procalcitonin (0-0.5) ng/ml Urine Color Urine Appearance (Clear) Urine pH (4.5-7.5) Ur Specific [place] (1.000-1.030) Urine Protein (Negative) Urine Glucose (UA) (Negative) Urine Ketones (Negative) Urine Blood (Negative) Urine Nitrite (Negative) Urine Bilirubin (Negative) Urine Urobilinogen (Negative) Ur Leukocyte Esterase (Negative) Urine WBC (Auto) (0-5) /hpf Urine RBC (Auto) (0-2) /hpf U Hyaline Cast (Auto) (0-2) /lpf U Epithel Cells (Auto) (0-2) /hpf Urine Bacteria (Auto) (None Seen) Granular Casts (None Prsent) /lpf Nasal Influ A H1 2009 PCR (NotDetected) Nasal Screen MRSA (PCR) (Negative) Adenovirus (PCR) (NotDetected) B. pertussis DNA (PCR) (NotDetected) B.parapertussis DNA PCR (NotDetected) C. pneumoniae DNA (PCR) (NotDetected) Coronavirus OC43 (PCR) (NotDetected) Coronavirus HKU1 (PCR) (NotDetected) Coronavirus 229E (PCR) (NotDetected) SARS-CoV-2 (PCR) (NotDetected) Coronavirus NL63 (PCR) (NotDetected) Human Metapneumovir PCR (NotDetected) Influenza Type B (PCR) (NotDetected) Urine Legionella Ag M. pneumoniae (PCR) (NotDetected) Parainfluenza 1 (PCR) (NotDetected) Parainfluenza 2 (PCR) (NotDetected) Parainfluenza 3 (PCR) (NotDetected) Parainfluenza 4 (PCR) (NotDetected) RSV (PCR) (NotDetected) Entero/Rhino (PCR) (NotDetected) 12/22/24 12/22/24 12/22/24 Range/Units Unknown 23:33 22:12 WBC (4.8-10.8) K/ul RBC (4.20-5.40) M/uL Hgb (12.0-16.0) g/dl POC Hgb (12.0-16.0) g/dl Hct (37.0-47.0) % POC Hct (37-47) % MCV (80.0-100.0) fL MCH (25.0-34.0) pg MCHC (32.0-36.0) g/dL RDW Std Deviation (36.4-46.3) fL RDW Coeff of Danika (11.5-14.5) % Plt Count (130-400) K/uL MPV (9.4-12.4) fL Immature Gran % (Auto) % Neut % (Auto) % Lymph % (Auto) % [place] % (Auto) % Eos % (Auto) % Baso % (Auto) % Neut # (Auto) (1.40-6.50) K/uL Lymph # (Auto) (1.20-3.40) K/uL [place] # (Auto) (0.11-0.59) K/uL Eos # (Auto) (0.00-0.50) K/uL Baso # (Auto) (0.00-0.20) K/uL Immature Gran # (Auto) (0.01-0.20) K/uL RBC Morphology Polychromasia Ovalocytes PT (9.0-12.0) Seconds INR (0.9-1.1) APTT (21-31) Seconds PTT Ratio VBG pH (7.36-7.41) VBG pCO2 (38-50) mmHg VBG pO2 mmHg VBG HCO3 mmol/L VBG O2 Saturation % VBG Base Excess mEq/L POC Sodium (135-144) mmol/L Sodium (136-145) mmol/L POC Potassium (3.3-5.0) mmol/L Potassium (3.5-5.1) mmol/L POC Chloride (101-112) mmol/L Chloride (98-107) mmol/L Carbon Dioxide (21-32) mmol/L POC Total CO2 (24-31) mmol/L Anion Gap (3-11) POC Anion Gap (16-25) mmol/L POC BUN (7-18) mg/dl BUN (6-23) mg/dl Creatinine (0.6-1.2) mg/dl POC Creatinine (0.6-1.3) mg/dl Est Cr Clr Drug Dosing ml/min eGFR BUN/Creatinine Ratio (10-20) Glucose (70-99(Fasting)) mg/dl POC Glucose (70-99) mg/dl POC Glucose (other) (70-99) mg/dl Lactate (0.4-2.0) mmol/L Calcium (8.6-10.3) mg/dl POC Ioniz Calcium Felisha (1.12-1.32) mmol/l Phosphorus (2.5-4.9) mg/dl Magnesium (1.7-2.4) mg/dl Total Bilirubin (0.2-1.0) mg/dl Direct Bilirubin AST (13-39) U/L ALT (7-52) U/L Alkaline Phosphatase (34-104) U/L Troponin I High Sens 2969.1 H* 2784.4 H* D (0-14) pg/ml B-Natriuretic Peptide (0-100) pg/ml Total Protein (6.0-8.3) gm/dl Albumin (3.4-5.0) gm/dl Globulin (2.5-4.0) gm/dl Albumin/Globulin Ratio (0.9-2) Procalcitonin (0-0.5) ng/ml Urine Color Urine Appearance (Clear) Urine pH (4.5-7.5) Ur Specific [place] (1.000-1.030) Urine Protein (Negative) Urine Glucose (UA) (Negative) Urine Ketones (Negative) Urine Blood (Negative) Urine Nitrite (Negative) Urine Bilirubin (Negative) Urine Urobilinogen (Negative) Ur Leukocyte Esterase (Negative) Urine WBC (Auto) (0-5) /hpf Urine RBC (Auto) (0-2) /hpf U Hyaline Cast (Auto) (0-2) /lpf U Epithel Cells (Auto) (0-2) /hpf Urine Bacteria (Auto) (None Seen) Granular Casts (None Prsent) /lpf Nasal Influ A H1 2008 PCR (NotDetected) Nasal Screen MRSA (PCR) Negative (Negative) Adenovirus (PCR) (NotDetected) B. pertussis DNA (PCR) (NotDetected) B.parapertussis DNA PCR (NotDetected) C. pneumoniae DNA (PCR) (NotDetected) Coronavirus OC43 (PCR) (NotDetected) Coronavirus HKU1 (PCR) (NotDetected) Coronavirus 229E (PCR) (NotDetected) SARS-CoV-2 (PCR) (NotDetected) Coronavirus NL63 (PCR) (NotDetected) Human Metapneumovir PCR (NotDetected) Influenza Type B (PCR) (NotDetected) Urine Legionella Ag M. pneumoniae (PCR) (NotDetected) Parainfluenza 1 (PCR) (NotDetected) Parainfluenza 2 (PCR) (NotDetected) Parainfluenza 3 (PCR) (NotDetected) Parainfluenza 4 (PCR) (NotDetected) RSV (PCR) (NotDetected) Entero/Rhino (PCR) (NotDetected) 12/22/24 12/22/24 12/22/24 Range/Units 21:57 20:30 20:25 WBC (4.8-10.8) K/ul RBC (4.20-5.40) M/uL Hgb (12.0-16.0) g/dl POC Hgb (12.0-16.0) g/dl Hct (37.0-47.0) % POC Hct (37-47) % MCV (80.0-100.0) fL MCH (25.0-34.0) pg MCHC (32.0-36.0) g/dL RDW Std Deviation (36.4-46.3) fL RDW Coeff of Danika (11.5-14.5) % Plt Count (130-400) K/uL MPV (9.4-12.4) fL Immature Gran % (Auto) % Neut % (Auto) % Lymph % (Auto) % [place] % (Auto) % Eos % (Auto) % Baso % (Auto) % Neut # (Auto) (1.40-6.50) K/uL Lymph # (Auto) (1.20-3.40) K/uL [place] # (Auto) (0.11-0.59) K/uL Eos # (Auto) (0.00-0.50) K/uL Baso # (Auto) (0.00-0.20) K/uL Immature Gran # (Auto) (0.01-0.20) K/uL RBC Morphology Polychromasia Ovalocytes PT (9.0-12.0) Seconds INR (0.9-1.1) APTT (21-31) Seconds PTT Ratio VBG pH (7.36-7.41) VBG pCO2 (38-50) mmHg VBG pO2 mmHg VBG HCO3 mmol/L VBG O2 Saturation % VBG Base Excess mEq/L POC Sodium (135-144) mmol/L Sodium (136-145) mmol/L POC Potassium (3.3-5.0) mmol/L Potassium (3.5-5.1) mmol/L POC Chloride (101-112) mmol/L Chloride (98-107) mmol/L Carbon Dioxide (21-32) mmol/L POC Total CO2 (24-31) mmol/L Anion Gap (3-11) POC Anion Gap (16-25) mmol/L POC BUN (7-18) mg/dl BUN (6-23) mg/dl Creatinine (0.6-1.2) mg/dl POC Creatinine (0.6-1.3) mg/dl Est Cr Clr Drug Dosing ml/min eGFR BUN/Creatinine Ratio (10-20) Glucose (70-99(Fasting)) mg/dl POC Glucose (70-99) mg/dl POC Glucose (other) (70-99) mg/dl Lactate 1.3 (0.4-2.0) mmol/L Calcium (8.6-10.3) mg/dl POC Ioniz Calcium Felisha (1.12-1.32) mmol/l Phosphorus (2.5-4.9) mg/dl Magnesium (1.7-2.4) mg/dl Total Bilirubin (0.2-1.0) mg/dl Direct Bilirubin AST (13-39) U/L ALT (7-52) U/L Alkaline Phosphatase (34-104) U/L Troponin I High Sens (0-14) pg/ml B-Natriuretic Peptide (0-100) pg/ml Total Protein (6.0-8.3) gm/dl Albumin (3.4-5.0) gm/dl Globulin (2.5-4.0) gm/dl Albumin/Globulin Ratio (0.9-2) Procalcitonin (0-0.5) ng/ml Urine Color Yellow Urine Appearance Cloudy A (Clear) Urine pH 5.0 (4.5-7.5) Ur Specific [place] 1.024 (1.000-1.030) Urine Protein 2+ H (Negative) Urine Glucose (UA) Negative (Negative) Urine Ketones Trace H (Negative) Urine Blood 1+ H (Negative) Urine Nitrite Negative (Negative) Urine Bilirubin Negative (Negative) Urine Urobilinogen Negative (Negative) Ur Leukocyte Esterase Negative (Negative) Urine WBC (Auto) 0-5 (0-5) /hpf Urine RBC (Auto) 11-20 H (0-2) /hpf U Hyaline Cast (Auto) >20 H (0-2) /lpf U Epithel Cells (Auto) 11-20 H (0-2) /hpf Urine Bacteria (Auto) 3+ H (None Seen) Granular Casts Present A (None Prsent) /lpf Nasal Influ A H1 2008 PCR DETECTED A (NotDetected) Nasal Screen MRSA (PCR) (Negative) Adenovirus (PCR) Not Detected (NotDetected) B. pertussis DNA (PCR) Not Detected (NotDetected) B.parapertussis DNA PCR Not Detected (NotDetected) C. pneumoniae DNA (PCR) Not Detected (NotDetected) Coronavirus OC43 (PCR) Not Detected (NotDetected) Coronavirus HKU1 (PCR) Not Detected (NotDetected) Coronavirus 229E (PCR) Not Detected (NotDetected) SARS-CoV-2 (PCR) Not Detected (NotDetected) Coronavirus NL63 (PCR) Not Detected (NotDetected) Human Metapneumovir PCR Not Detected (NotDetected) Influenza Type B (PCR) Not Detected (NotDetected) Urine Legionella Ag M. pneumoniae (PCR) Not Detected (NotDetected) Parainfluenza 1 (PCR) Not Detected (NotDetected) Parainfluenza 2 (PCR) Not Detected (NotDetected) Parainfluenza 3 (PCR) Not Detected (NotDetected) Parainfluenza 4 (PCR) Not Detected (NotDetected) RSV (PCR) Not Detected (NotDetected) Entero/Rhino (PCR) Not Detected (NotDetected) 12/22/24 12/22/24 Range/Units 20:07 20:00 WBC 9.68 (4.8-10.8) K/ul RBC 3.52 L (4.20-5.40) M/uL Hgb 11.1 L (12.0-16.0) g/dl POC Hgb 11.2 L (12.0-16.0) g/dl Hct 34.0 L (37.0-47.0) % POC Hct 33 L (37-47) % MCV 96.6 (80.0-100.0) fL MCH 31.5 (25.0-34.0) pg MCHC 32.6 (32.0-36.0) g/dL RDW Std Deviation 48.8 H (36.4-46.3) fL RDW Coeff of Danika 13.8 (11.5-14.5) % Plt Count 215 (130-400) K/uL MPV 9.2 L (9.4-12.4) fL Immature Gran % (Auto) 0.9 % Neut % (Auto) 87.9 % Lymph % (Auto) 4.8 % [place] % (Auto) 6.3 % Eos % (Auto) 0.0 % Baso % (Auto) 0.1 % Neut # (Auto) 8.51 H (1.40-6.50) K/uL Lymph # (Auto) 0.46 L (1.20-3.40) K/uL [place] # (Auto) 0.61 H (0.11-0.59) K/uL Eos # (Auto) 0.00 (0.00-0.50) K/uL Baso # (Auto) 0.01 (0.00-0.20) K/uL Immature Gran # (Auto) 0.09 (0.01-0.20) K/uL RBC Morphology Polychromasia Ovalocytes PT 11.3 (9.0-12.0) Seconds INR 1.0 (0.9-1.1) APTT 31 (21-31) Seconds PTT Ratio 1.2 VBG pH 7.41 (7.36-7.41) VBG pCO2 61 H (38-50) mmHg VBG pO2 < 20 mmHg VBG HCO3 39 mmol/L VBG O2 Saturation < 60.0 % VBG Base Excess 11.5 mEq/L POC Sodium 137 (135-144) mmol/L Sodium 138 (136-145) mmol/L POC Potassium 4.6 (3.3-5.0) mmol/L Potassium 4.7 (3.5-5.1) mmol/L POC Chloride 98 L (101-112) mmol/L Chloride 97 L (98-107) mmol/L Carbon Dioxide 34 H (21-32) mmol/L POC Total CO2 33 H (24-31) mmol/L Anion Gap 7 (3-11) POC Anion Gap 12.0 L (16-25) mmol/L POC BUN 32 H (7-18) mg/dl BUN 28 H (6-23) mg/dl Creatinine 0.96 (0.6-1.2) mg/dl POC Creatinine 1.1 (0.6-1.3) mg/dl Est Cr Clr Drug Dosing 51.0 ml/min eGFR 62.86 BUN/Creatinine Ratio 29.2 H (10-20) Glucose 109 H (70-99(Fasting)) mg/dl POC Glucose (70-99) mg/dl POC Glucose (other) 108 H (70-99) mg/dl Lactate (0.4-2.0) mmol/L Calcium 9.5 (8.6-10.3) mg/dl POC Ioniz Calcium Felisha 1.14 (1.12-1.32) mmol/l Phosphorus (2.5-4.9) mg/dl Magnesium 1.9 (1.7-2.4) mg/dl Total Bilirubin 0.4 (0.2-1.0) mg/dl Direct Bilirubin TNP AST 123 H (13-39) U/L ALT 47 (7-52) U/L Alkaline Phosphatase 54 (34-104) U/L Troponin I High Sens 2286.7 H* (0-14) pg/ml B-Natriuretic Peptide 464 H (0-100) pg/ml Total Protein 7.1 (6.0-8.3) gm/dl Albumin 3.4 (3.4-5.0) gm/dl Globulin (2.5-4.0) gm/dl Albumin/Globulin Ratio (0.9-2) Procalcitonin 1.60 H (0-0.5) ng/ml Urine Color Urine Appearance (Clear) Urine pH (4.5-7.5) Ur Specific [place] (1.000-1.030) Urine Protein (Negative) Urine Glucose (UA) (Negative) Urine Ketones (Negative) Urine Blood (Negative) Urine Nitrite (Negative) Urine Bilirubin (Negative) Urine Urobilinogen (Negative) Ur Leukocyte Esterase (Negative) Urine WBC (Auto) (0-5) /hpf Urine RBC (Auto) (0-2) /hpf U Hyaline Cast (Auto) (0-2) /lpf U Epithel Cells (Auto) (0-2) /hpf Urine Bacteria (Auto) (None Seen) Granular Casts (None Prsent) /lpf Nasal Influ A H1 2008 PCR (NotDetected) Nasal Screen MRSA (PCR) (Negative) Adenovirus (PCR) (NotDetected) B. pertussis DNA (PCR) (NotDetected) B.parapertussis DNA PCR (NotDetected) C. pneumoniae DNA (PCR) (NotDetected) Coronavirus OC43 (PCR) (NotDetected) Coronavirus HKU1 (PCR) (NotDetected) Coronavirus 229E (PCR) (NotDetected) SARS-CoV-2 (PCR) (NotDetected) Coronavirus NL63 (PCR) (NotDetected) Human Metapneumovir PCR (NotDetected) Influenza Type B (PCR) (NotDetected) Urine Legionella Ag M. pneumoniae (PCR) (NotDetected) Parainfluenza 1 (PCR) (NotDetected) Parainfluenza 2 (PCR) (NotDetected) Parainfluenza 3 (PCR) (NotDetected) Parainfluenza 4 (PCR) (NotDetected) RSV (PCR) (NotDetected) Entero/Rhino (PCR) (NotDetected) Diagnostic Findings Chest X-Ray 12/22/24 19:55 Exam(s): XR CXR 1 VIEW EXAM: XR Chest, 1 View CLINICAL HISTORY: Sepsis. TECHNIQUE: Frontal view of the chest. COMPARISON: Portable chest single view December 21, 2024 FINDINGS: Lungs: Similar to slightly increased subsegmental opacities at the right lung base with similar opacification of the left lower lung zone. The pulmonary suture appears minimally improved from the previous examination. Pleural space: A left pleural effusion is noted. No pneumothorax. Heart: The cardiac silhouette is partially obscured but thought to be stable. Mediastinum: The mediastinal contours are stable. The trachea is midline. Bones/joints: Unremarkable. No acute fracture. IMPRESSION: 1. Similar to slightly increased subsegmental opacities at the right lung base with similar opacification of the left lower lung zone. The left pleural effusion is stable in appearance. 2. The pulmonary suture appears minimally improved from the previous examination. Electronically signed by: Gagan Eugene MD 12/22/24 20:[address] 12/22/24 21:58 Exam(s): CT CHEST Without Contrast EXAM: CT Chest Without Intravenous Contrast CLINICAL HISTORY: Respiratory failure. Lung mass. Effusion. TECHNIQUE: Axial computed tomography images of the chest without intravenous contrast. CTDI is 12.08 mGy and DLP is 414.58 mGy-cm. Automated exposure control was utilized for the study. A dose lowering technique was utilized adhering to the principles of ALARA. COMPARISON: No relevant prior studies available. FINDINGS: Lungs: There is an abnormal rounded mass with internal irregular calcifications involving the left lower lobe. Detailed evaluation limited without contrast and surrounding effusion. The mass is estimated roughly at 6.1 x 7.1 cm. Patchy irregular airspace opacities noted in the posterior left upper lobe and both lower lobes. There are some nodular components peripherally in the left upper lobe and anterior basal segment of the left lower lobe superiorly. Pleural space: A right pleural effusion is noted layering posteriorly. No loculation. The effusion measures approximately 2.5 cm. No pneumothorax. Heart: The cardiac chambers are normal in caliber. Prominent coronary artery calcification. No significant pericardial effusion. Bones/joints: No acute osseous abnormality. No definite osseous metastatic disease. No dislocation. Soft tissues: Unremarkable. Vasculature: The thoracic aorta is heavily calcified but is normal in caliber. Lymph nodes: There are abnormal prominent subcarinal and left hilar calcified lymph nodes with some nonspecific paratracheal lymph nodes which also demonstrate internal calcification. IMPRESSION: 1. There is an abnormal rounded mass with internal irregular calcifications involving the left lower lobe. Detailed evaluation limited without contrast and surrounding effusion. The mass is estimated roughly at 6.1 x 7.1 cm. A neoplastic process is suspected. 2. Patchy irregular airspace opacities noted in the posterior left upper lobe and both lower lobes. There are some nodular components peripherally in the left upper lobe and anterior basal segment of the left lower lobe superiorly. Subtle satellite metastatic disease is suspected superimposed on bilateral pneumonia. 3. A right pleural effusion is noted layering posteriorly. No loculation. The effusion measures approximately 2.5 cm. 4. There are abnormal prominent subcarinal and left hilar calcified lymph nodes with some nonspecific paratracheal lymph nodes which also demonstrate internal calcification. Favor or treated metastatic lymphadenopathy or lymphoma of her Castleman's disease. Electronically signed by: Gagan Eugene MD 12/22/24 23:[address] 12/22/24 21:58 Exam(s): CT HEAD Without Contrast EXAM: CT Head Without Intravenous Contrast CLINICAL HISTORY: Confusion. Brain mets. TECHNIQUE: Axial computed tomography images of the head/brain without intravenous contrast. Automated exposure control was utilized for the study. A dose lowering technique was utilized adhering to the principles of ALARA. COMPARISON: No relevant prior studies available. FINDINGS: Brain: There are abnormal dense lesions in the periventricular medial left occipital temporal region measuring 14 mm. There are also abnormal lesions involving the superior aspect of the right cerebellar hemisphere. Detailed evaluation limited without contrast. No intracranial hemorrhage. No significant mass-effect. No significant white matter disease. Ventricles: Unremarkable. No ventriculomegaly. Bones/joints: Unremarkable. No acute fracture. Soft tissues: Unremarkable. Sinuses: Unremarkable as visualized. No acute sinusitis. Mastoid air cells: Unremarkable as visualized. No mastoid effusion. IMPRESSION: 1. There are abnormal dense lesions in the periventricular medial left occipital temporal region measuring 14 mm. There are also abnormal lesions involving the superior aspect of the right cerebellar hemisphere. Detailed evaluation limited without contrast. The primary consideration is metastatic disease. Recommend MRI with contrast to fully assess for further potential metastatic disease. 2. No intracranial hemorrhage. No significant mass-effect. No midline shift. Electronically signed by: Gagan Eugene MD 12/22/24 23:40 PM Venous Doppler Study 12/23/24 00:46 EXAM: US venous doppler LE BI CLINICAL HISTORY: R heart dilation, rule out DVT. TECHNIQUE: Ultrasound examination of bilateral lower extremity veins was performed in real time and duplex. One or more of the following were performed- spectral analysis, resistive index, waveform analysis, and pulsed Doppler. COMPARISON: None. FINDINGS: Portable exam in ICU. Limited visualization of RT CFV due to CVC placement and bandage. Distal right popliteal vein shows internal echogenic content with no flow suggesting thrombosis. Normal phasic, non-pulsatile and spontaneous flow is noted in visualized parts of bilateral common femoral, superficial femoral, left popliteal and posterior tibial and peroneal veins. Visualized veins of both lower extremities demonstrate normal compressibility. No sonographic evidence of acute deep vein thrombosis (DVT) is detected in the visualized veins of both lower extremities. Compression and Augmentation: All evaluated veins compress fully with applied transducer pressure. IMPRESSION: 1. Distal right popliteal vein shows internal echogenic content with no flow suggesting thrombosis, DVT should be considered, clinical correlation and further follow-up is advised. 2. Portable exam in ICU. Limited visualization of RT CFV due to CVC placement and bandage. Disclaimer: DVT could be missed early in the disease when clot burden is minimal. For patients with moderate and high pretest probability of DVT and negative ultrasound, the [employer] clinical guidelines recommend testing with a D-dimer assay or repeat ultrasound in 5-7 days. If symptoms worsen, the Society of radiologists in Ultrasound recommends repeating ultrasound even earlier. Electronically signed by Luana Huertas 12-23-2024 02:48 AM Chest CTA 12/23/24 03:11 EXAM: CT angio chest PE protocol CLINICAL HISTORY: Right popliteal DVT, respiratory failure, hypotension. TECHNIQUE: CT angiography of the chest was performed with intravenous contrast with the following protocol: axial images with, reconstructed coronal and sagittal images. One of these 3D techniques was utilized: Maximum Intensity Pixel (MIP), 3D Reconstructed Images, Volume Rendered Images, Surface Shaded Rendering. One of the following dose reduction techniques was utilized for this exam: Automated exposure control, adjustment of the mA and/or kV according to patient size, and use of iterative reconstruction. CTDI: 34.2 mGy, DLP: 703.4 mGy*cm. COMPARISON: CT dated 11/02/2024 and X-ray dated 12/11/2024. FINDINGS: Aorta and Great Vessels: Thoracic Aorta: Diffuse aortic atheromatous calcification there is no aneurysmal dilatation or dissection Pulmonary Arteries: The main pulmonary artery and its branches are patent. No evidence of pulmonary embolism or significant stenosis. Heart: Redemonstration of cardiomegaly. Pericardium: No pericardial effusion or thickening. Lungs and Pleura: Newly developed mild to moderate amount of right pleural effusion with lower lobe collapse and alveolar/airspace opacities. Progression of the amount of the left pleural effusion and underlying lower lobe collapse. Regression of the alveolar and airspace opacities previously seen at the left upper lobe lingular segment and left lower lobe mainly superior segment. Redemonstration of the left pulmonary interstitial thickening reticulations and scattered nodular densities. Mediastinum: Redemonstration of the confluent calcified lymph nodes seen at mediastinal and hilar locations encasing and attenuating the left lower lobe bronchi. Normal appearance of the trachea and central bronchi. Hilar Structures: Redemonstration of the confluent calcified lymph nodes seen at mediastinal and hilar locations encasing and attenuating the left lower lobe bronchi. Chest Wall: No mass lesions or abnormalities in the chest wall. Vascular Structures: Superior Vena Cava: Patent without evidence of stenosis or thrombus. Inferior Vena Cava: Patent without evidence of stenosis or thrombus. Bones and Soft Tissues: Osteopenia spondylosis and dextroscoliosis. IMPRESSION: 1. No evidence of acute pulmonary thromboembolism. 2. Newly developed moderate right pleural effusion and lower lobe alveolar/airspace opacities likely inflammatory/pneumonia. 3. Progression of the left pleural effusion and collapse with mild regression of the left lung lower lobe and lingular inflammatory changes. 4. Redemonstration of the hilar and mediastinal calcified lymphadenopathy occluding left lower lobe bronchi 5. Redemonstration of cardiomegaly. 6. Redemonstration of the left pulmonary interstitial thickening reticulations and scattered nodular densities. Electronically signed by Luana Huertas 12-23-2024 04:42 AM Medications Administered Vital Signs Temp 36.7 C 12/26/24 11:14 Pulse 82 12/26/24 11:14 Resp 18 12/26/24 11:14 BP 166/91 H 12/26/24 11:14 Pulse Ox 93 12/26/24 11:14 O2 Del Method Nasal Cannula 12/26/24 11:14 O2 Flow Rate 5.0 12/26/24 11:14 FiO2 92 12/23/24 08:08 Intake & Output 12/25/24 12/26/24 12/26/24 18:59 06:59 18:59 Intake Total 196.667 / 416.667 220 / 416.667 Output Total 350 / 350 Balance 196.667 / 66.667 -130 / 66.667 Weight 67.2 kg Intake: IV 196.667 / 196.667 Piperacillin/Tazobactam 4.5 gm 196.667 / 196.667 In 100 ml @ 25 mls/hr IV Q8H [facility] Rx#:[id number] Oral 220 / 220 Output: Urine Amount (Catheter) 350 / 350 External 350 / 350 Other: # Unmeasured Voids 2 PG Care Time/CCT Total # of Minutes Spent Total Time Spent with Patient: Total time spent is greater than 50% in coordination of care (as documented) at patient's floor/unit and/or counseling patient: I spent 125 minutes overall addressing this case: 15 min in medical data review/discussion with referring provider(s) and/or preparation for the visit 15 min in direct interaction with the patient/exam 60 min in Advance Care Planning/Goals of Care discussions as detailed above in note (must be >16min) 15 min in subsequent review and synthesis of assessment and plan 20 min communicating with other providers regarding the patient's case: primary team, oncology, CM, nursing Advanced Care Planning 47562 Advanced Care Planning 30 Min 21342 Advanced Care Planning Additional 30 [place] [address] IN/OBS CONSULT LVL 5,80M (25 - SIGNIFICANT, SEPARATELY IDENTIFIABLE ) Patient Type New Exam Comprehensive Medical Decision Making High Complexity Diagnoses Cancer related pain G89.3 Dyspnea and respiratory abnormalities R06.00; R06.89 Weakness generalized R53.1 Advanced care planning/counseling discussion Z71.89 Palliative care by specialist Z51.5 Lung cancer metastatic to brain C34.90; C79.31 Influenza A virus subtype H1 2009 pandemic strain present J10.1 Additional Codes Advanced Care Planning - 65287 Advanced Care Planning 30 Min: 39731 Advanced Care Planning 30 Min ([id number]) Advanced Care Planning - 47913 Advanced Care Planning Additional 30 Min: 17979 Advanced Care Planning Additional 30 Min ([id number])
[2024-12-27 02:50] VITALS: TEMP 98.1
--- NOTE | 2024-12-27 06:49 | Discharge Summary ---
Date of Service December 27, 2024 Admission HPI Per Admitting Provider The patient is a 74-year-old female with a past medical history including metastatic mucinous adenocarcinoma of lung, left pleural effusion, prediabetes, esophageal candidiasis, esophageal ulcer, hyperlipidemia, history of smoking, COPD with emphysema, PAD, cerebrovascular disease, erosive esophagitis, vitamin D deficiency, hypothyroidism, history of CT, CAD, and SNHL bilaterally. She was most recently seen by palliative care on 12/14/2024, with adequate pain control at that time. Since that time she had been gradually developing more difficulty with breathing, and was brought to the emergency department for assessment. She was found to be significantly hypoxic, with pulse ox in the 70s when seen by 911, and was placed on nonrebreather mask prior to arrival. While in the emergency department, her prior blood pressure reached a low of 56/38. At this time I had a discussion with the patient's , who is POA, and reports that he and she wanted full resuscitation. Troponin was elevated at 2286.7, she was felt to be in cardiogenic shock, and patient was started on Levophed by the ED, with plans to move to the ICU. The patient herself was not able to contribute significantly to ROS or HPI due to her current respiratory state Admission Exam Per Admitting Provider The patient is awake, normocephalic and atraumatic, presently on BiPAP, in mild to moderate respiratory distress HEENT--PERRL, EOMI, mucous membranes and oropharynx dry. Neck--supple. No JVD. No bruits. Thyroid normal, trachea midline, no adenopathy. Heart--normal S1 and S2. No murmurs, rubs or gallops. Lungs--coarse breath sounds bilaterally with crackles at the bases. Mild to moderate respiratory distress, no accessory muscle use. Abdomen--normal bowel sounds and soft. Nontender. Nondistended, no hernias or masses, no organomegaly. Extremities--no cyanosis or clubbing. No edema. There are good distal pulses b/l. Dermatologic--normal skin turgor, normal color, no abnormal lymph nodes, no rash. Neurologic--cranial nerves II through XII grossly intact. Rheumatologic--limited exam Psychiatric--normal affect. Principal Diagnosis COPD exacerbation due to influenza A Discharge Exam General:Alert and oriented, no acute distress, HEENT: Normocephalic, moist oral mucosa, Cardio: Regular rate and rhythm, Resp:Clear to auscultation bilaterally, no wheezes Skin: Warm, pink, dry, Discharge Data Allergies Allergy/AdvReac Type Severity Reaction Status Date / Time No Known Allergies Allergy Verified 12/20/24 14:48 Consultations 12/22/24 21:09 ED Decision to Admit Stat 12/22/24 23:20 Consult Party Plan Salesperson Routine 12/23/24 08:57 Consult Cardiology Routine 12/23/24 09:50 Consult Hematology Routine 12/25/24 16:49 Consult Palliative Care Routine Ordered Studies 12/22/24 21:58 CT chest diagnostic wo con Stat CT head/brain wo con Stat 12/23/24 00:46 US venous doppler LE BI Urgent 12/23/24 03:11 CT for pulmonary embolism PE [CT angio chest PE protocol] Stat Hospital Course (1) Acute respiratory failure with hypoxia: (2) Acute non-ST elevation myocardial infarction (NSTEMI): (3) DVT (deep venous thrombosis): (4) Hypotension: Plan Pt is a 74 yo female with a past med hx of lung cancer with mets to brain currently undergoing radiation treatments for mets, HLD, PAD, osteoporosis, CAD, and COPD who presents to the hospital on 12/22 for AHRF in the setting of pneumonia/influ A. #Acute hypoxic resp failure, improved - in the setting of COPD and metastatic lung cancer, + for influ A also - improved - tamiflu for 5 days (day 5 today on discharge) - Suspected bilateral pneumonia. Possibly obstructive in nature from her underlying lung cancer. Zosyn transitioned to augmentin 12/25 to finish off on discharge - chronic steroid/dexamethasone use; per pulm stress dose hydrocortisone 50 mg q6h, done for 5 days prior to discharge, given lung disease will send remaining burst as prednisone for 2 more days at home 40 mg each dose #DVT - noted on US done several days ago; report states "Distal right popliteal vein shows internal echogenic content with no flow suggesting thrombosis, DVT should be considered" - pt now on full anticoagulation lovenox, to switch to eliquis on discharge #Hypotension; resolved - on admission, most likely septic shock/due to illness - needed pressors for small amount of time, has done well without the last few days #NSTEMI -on admission with trop 2287 -> peak 2969 then downtrended - echo was normal left ventricular systolic function and without wall motion abnormality - cardiology consulted; suspect demand ischemia due to hypotension/shock on admission Dispo: To go home with hospice Total Time Total Time Spent Total Time Spent (In Minutes): As per attending attestation. Discharge Plan Discharge Items Patient Disposition: Hospice - Home Reason For Visit: CARDIOGENIC SHOCK, CHF Discharge Diagnosis: COPD exac due to influenza A Activity: As commented below Activity Comment: Activity as tolerated Non-emergency contact: Primary Care Provider, Oncologist and It Business Analyst Call non-emergency contact if: you have any medication questions, your symptoms worsen and your temperature is above 101 Follow-up/Referrals: Clinton Anand, [Primary Care Provider] - 01/01/25 9:20 am (Hospital follow up is scheduled for January 01, 2025 at 9:20am) Diet: Regular Addtl Attending Provider Instructions: You were admitted to the hospital for an acute COPD flare up in the setting of influenza A ("the flu") infection. As your oxygen needs have come down and now your blood pressure, which was very low initially, has improved, we feel it is safe for you to return home with home hospice services. There will be 3 new medications for you at discharge. You will start on a blood thinner called Eliquis (apixaban) for the blood clot in your leg. This ensures the blood clot does not more to other places in the body, like the lungs. Please ensure you do not miss any doses, as even just one missed dose puts you at risk for further blood clots. We have also sent a steroid to your pharmacy. Please hold your home dosing of steroid while you take this steroid. Do not double up on these medications. This is to finish out a steroid course for your lungs. We have also sent the remainder of antibiotic for you to the pharmacy. You may continue to have cough and congestion for the next week or so, cough may last 6 weeks or more, and fatigue may last 1-2 months after an infection. Please plan to follow-up with your primary care doctor within 1 week of discharge from the hospital. Next dose of eliquis: tomorrow morning Next dose of steroid: tomorrow morning Next dose of antibiotic (augmentin): tonight around 9pm Pending Studies at Discharge: No Stand-Alone Forms: My [facility] Medications and DC Order Prescriptions: New Eliquis 5 mg tablet See Rx Instructions .ROUTE .COMPLEX Qty: 90 1RF Rx Instructions: 5 mg orally ;Please take 2 tablets twice daily for the next 5 days starting 12/28 in the morning until 01/02, then from 01/02 onwards take 1 tablet twice daily thereafter. amoxicillin-pot clavulanate 875-125 mg Tablet 1 tab PO BIDM 2 Days Qty: 4 0RF prednisone 20 mg tablet 40 mg PO DAILY 2 Days Qty: 4 0RF Rx Instructions: Starting 12/28 Continued docusate sodium [Colace] 100 mg capsule 100 mg PO QAM levothyroxine 50 mcg tablet 50 mcg PO QAM Qty: 90 1RF metoprolol succinate 50 mg tablet extended release 24 hr 50 mg PO QAM Qty: 90 3RF metformin 500 mg tablet 500 mg PO BID Qty: 180 1RF Rx Instructions: Take 1 PO daily x 7 days, then twice daily thereafter Calcium 600 + D(3) 600 mg-5 mcg (200 unit) capsule 1 cap PO BID multivitamin [Multiple Vitamins] Tablet 1 tab PO QAM cholecalciferol (vitamin D3) 25 mcg (1,000 unit) capsule 25 mcg PO HS oxycodone-acetaminophen [Percocet] 5-325 mg tablet 1 tab PO Q6H PRN (Reason: cancer breakthru pain) 30 Days Qty: 60 0RF acetaminophen [Tylenol] 325 mg Tablet 325 mg PO QID PRN (Reason: Pain) aspirin 81 mg Capsule 81 mg PO QAM clopidogrel 75 mg Tablet 75 mg PO HS pantoprazole 40 mg tablet,delayed release (DR/EC) 40 mg PO QAM lidocaine 5 % adhesive patch,medicated 1 patch topical DAILY PRN (Reason: cancer related pain) Rx Instructions: leave on most painful area for up to 12 hrs ezetimibe 10 mg tablet 10 mg PO QAM rosuvastatin 40 mg tablet 40 mg PO HS Incruse Ellipta 62.5 mcg/actuation blister with device 1 inh inhalation QAM Saccharomyces boulardii [Florastor] 250 mg capsule 250 mg PO BID Qty: 20 0RF Rx Instructions: swallow whole fenofibrate nanocrystallized 145 mg tablet 145 mg PO QPM Rx Instructions: Take 1 tablet by mouth once daily prochlorperazine maleate 10 mg tablet 10 mg PO Q6H PRN (Reason: Nausea And Vomiting) olanzapine 2.5 mg tablet 2.5 mg PO HS Rx Instructions: take for 4 days starting day 1 of chemo for nausea dexamethasone 4 mg tablet 4 mg PO .SEEATTACHED Rx Instructions: TAKE 4 MG BY MOUTH TWICE DAILY STARTING THE DAY BEFORE TREATMENT, DAY OF T REATMENT AND DAY AFTER TREATMENT folic acid 1 mg tablet 1 mg PO DAILY Rx Instructions: BEGINE 1 WEEK BEFORE INITIAL PEMETREXED DOSE AND CONTINUE UNTIL 3 WEEKS AFTER FINAL DOSE Discharge Orders: Discharge Order (Routine); Ordered 12/27/24 Ordered By: Naima Rogers Admission Data Admit Date/Time: 12/22/24 21:39 Attending Provider: Scott Huddleston Admit Provider: Blane Lindsey Primary Care Provider: Clinton Anand Other Providers: Blane Lindsey; Montez Velasco; Devendra Eubanks; Jordi Wen; Ken Abebe; Devin Goldsmith; Addison Carranza; Manjinder Del Cid Jr; Tito Sanchez; Arin Stubbs; Helga Llanes; Rickey Toribio; Rickey Shanks; Germán Junior; Eden Pabon; Ketan Diane; La Murphy; Ketan Segovia; Jus Starkey; Gilberto Kingston; Mariela Vang; Regina Knight; Bernard Us; Monica Duarte; Dia Tovar; Enoc Morales; Danyelle Clinton; Jaylin,No Attending; Ivet Adler; [facility] Other Interventions: Discharge Summary Assessment (RN) Last Done: 12/27/24 13:55 Supervising Physician Co-Signing Physician Notes I personally examined the patient and verified all marcelino points of history and exam, discussed case, and agree with decision making with Dr Rogers no new complaints, no new problems. for home/hospice vitals noted nad heent nc at mmm breathing unlabored no accessory muscles good effort skin no rashes no pallor or icterus flu, hypoxia, probably secondary bacterial pneumonia - improving, safe for home DVT - anticoagulated dispo - home/hospice otherwise as above Resident Activity Tracking Resident Involvement: Resident Care Provided Care Provided: Adult Hospital Medicine
[2024-12-27 07:08] LABS: BUN Creatinine Ratio 31.7 (10-20); Calcium 8.8 mg/dl (8.6-10.3); Creatinine Clr Calc Pharmacy 79.8 ml/min; Potassium 3.2 mmol/L (3.5-5.1)
[2024-12-27 07:48] VITALS: O2SAT 90
[2024-12-27] MEDS: POTASSIUM CHLORIDE CRTAB 20 MEQ TABCR PO STA (09:51)
[2024-12-27 10:40] VITALS: PULSE 86; RESP 20
[2024-12-27 13:56] VITALS: BP 77/50
--- NOTE | 2024-12-27 15:25 | Billing Data ---
Date of Service December 27, 2024 Coding Level of Care Code 39177 IN/OBS DISCH 30 MIN/LESS
== END 2024-12-27 14:44 | disposition hospice, home (50) | DRG 871 ==
LOC: ED 19:49 → SUATTDRO 21:39 → 1E 21:39 → 2E 12-24 19:17